=== PATIENT | male | born 1960 | race Caucasian/White ===

== ENCOUNTER 2022-04-04 10:20 | Outpatient (CLI) | payer MEDICARE, BC, SELFPAY ==
--- NOTE | 2022-04-04 10:15 | MR_ITS ---
[address] [address] Phone:?[phone] Fax:?[phone] Referring Physician Information: Wesly West M.D. [id number] [facility] [address] Phone:?[phone] Fax:?[phone] Patient:Lauren Mcintosh D.O.B:?1960 Sex:?Male Phone:?[phone] [facility] MRN:?[id number] Exam Date:?04/04/2022 ? EXAM: MRI of the LEFT KNEE, without contrast CLINICAL HISTORY: Left knee pain. Evaluate for medial meniscal tear. COMPARISONS: None available. TECHNICAL: MR sequences of the left knee: sagittals: PD, PDFS coronals: PD, STIR axials: PD, T2 FS CONTRAST: None SEDATION: None FINDINGS: Bones: No fracture, bone marrow contusion, or other suspicious bone marrow signal abnormality. Patellofemoral joint: Cartilage: Approximately 2.0 x 2.0 cm area of near full-thickness chondromalacia centered over the central portion of the trochlea best seen on sagittal series 6 image 17 and axial series 4 image 15. A couple of near full-thickness chondral fissures over the median patellar ridge best seen on axial series 4 image 10. Retinacula: The medial and lateral retinacula are intact. Fat pads: The infrapatellar, quadriceps, and prefemoral fat pads are unremarkable. Knee joint: Effusion: Physiologic amount of joint fluid. Popliteal cyst: None. Intra-articular bodies: None. Medial compartment: Medial meniscus: Approximately 3.0 cm in length free edge and inferiorly surfacing horizontal flap tear of the body through posterior horn of the medial meniscus with a flap of torn meniscal tissue at the free edge of the posterior horn flipped superiorly best seen on sagittal series 6 images 6 through 13 and coronal series 7 and 8 images 20 through 22. 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 Lateral compartment: Lateral meniscus: Approximately 0.5 cm in length free edge and inferiorly surfacing horizontal tear of the body through body/posterior horn junction of the lateral meniscus best seen on coronal series 7 and 8 images 19 through 21. Cartilage: Intact. Ligaments: Anterior cruciate ligament: Intact. Posterior cruciate ligament: Intact. Medial collateral ligament: There is Kelly-Stieda. No acute medial collateral ligament injury is seen. Posterior oblique ligament: Intact. Fibular collateral ligament: Intact. Posterolateral corner: The distal biceps femoris tendon, iliotibial band, popliteus tendon, popliteus muscle, popliteofibular ligament, and arcuate ligament are intact. Posteromedial corner: The semimembranosus and pes anserine tendons are intact. Extensor mechanism: Patellar tendon: Intact. Quadriceps tendon: Intact. There is marked atrophy of the imaged proximal portion of the medial head of the gastrocnemius muscle in the setting of more diffuse [id number] muscular atrophy. IMPRESSION: 1. Approximately 3.0 cm in length free edge and inferiorly surfacing horizontal flap tear of the body through posterior horn of the medial meniscus with a flap of torn meniscal tissue at the free edge of the posterior horn flipped superiorly. 2. Approximately 0.5 cm in length free edge and inferiorly surfacing horizontal tear of the body through body/posterior horn junction of the lateral meniscus. 3. Kelly-Stieda, indicative of old medial collateral ligament sprain injury. No acute medial collateral ligament injury. 4. Approximately 2.0 x 2.0 cm area of near full-thickness chondromalacia centered over the central portion the trochlea and a couple of near full- thickness chondral fissures over the median patellar ridge. 5. 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 RCB Electronically signed on 04/04/2022 12:09:00 PM by David Ji M.D.
--- OUTSIDE RECORDS SUMMARY | 2022-04-04 10:22 | XMS_ITS | Clinical Summary ---
:1960 Author Organization [employer] [facility] [place] [address] Care Team Providers Name Role Phone Graham Morejon DO Primary Care Provider Allergies Active Allergy Reactions Severity Noted Date Comments Bupropion Anxiety, Agitation, 01/20/2010 Diaphoresis Citalopram *Unknown 01/27/2012 Urine retention / anger issues / crabby Omeprazole GI Upset 11/21/2011 Does not tolera te Generic form-tolerates prilosec Gastric reflux worsens with this. Pregabalin Syncope 12/11/2009 Lyrica Medications Medication Sig Dispensed Refills Start End Status Date Date ASPIRIN 325 MG TAB One tablet 0 12/23/19 Active daily 06 calcium Take 1 tablet 0 05/06/20 Active carbonate-vitamin by mouth 2 14 D3, 600 mg-400 unit, times daily (CALCIUM 600 + D) with meals. 600 mg(1,500mg) -400 unit tablet propranolol Take 1 tablet 1 06/19/20 Acti ve (INDERAL) 20 mg by mouth one 15 tabletIndications: time if needed Tremor for Other (Specify). Per Dr. Garrett Dominguez 3CC LUER-KRISTAL SYR Use as 50 Each 3 12/06/19 Active [id number]/2 3 mL 22 x directed. 18 1 1/2 syrgIndications: Low testosterone lamoTRIgine Take 150 mg by 0 03/23/20 Act kelby (LAMICTAL) 150 mg mouth 2 times 20 tablet daily. atorvastatin Take 1 Tablet 90 tablet. 3 02/06/20 Ac tive (LIPITOR) 80 mg (80 mg) by 21 tabletIndications: mouth once Hyperlipidemia with daily. Wait target LDL less than until they call 100 for this. pantoprazole TAKE ONE TABLET 90 Tablet 3 08/04/19 A ctive (PROTONIX) 20 mg BY MOUTH ONE 22 tabletIndications: TIME DAILY Gastroesophageal reflux disease, unspecified whether esophagitis present cyclobenzaprine Take 1 Tablet 21 Tablet 0 03/08/20 Active (FLEXERIL) 10 mg (10 mg) by 22 tabletIndications: mouth 3 times Abdominal pain, RLQ daily if needed (right lower for Muscle quadrant) Spasm. FreeStyle Jody 14 To be used to 1 Each 0 03/10/20 Active Day read blood 22 SensorIndications: sugars per Uncontrolled type 2 teradata developer's diabetes mellitus directions. with hyperglycemia (HC) glipiZIDE Take 1 tablet 90 Tablet 2 03/10/20 Active extended-release before 22 (GLUCOTROL XL) 5 mg breakfast and 2 Extended-Release tablets before tabletIndications: dinner. Type 2 diabetes mellitus without complication, without long-term current use of insulin (HC) FreeStyle Jody 14 To be used to 1 Each 0 03/11/20 Active Day read blood 22 ReaderIndications: sugars per Type 2 diabetes teradata developer's mellitus without directions. complication, without long-term current use of insulin (HC) tamsulosin (FLOMAX) Take 2 Capsules 180 Capsule 3 03/11/20 Active 0.4 mg (0.8 mg) by 22 capsuleIndications: mouth once Frequency of daily after a urination meal. meloxicam 15 mg meloxicam 15 mg tablet 0 Active tablet TAKE ONE TABLET BY MOUTH ONE TIME DAILY furosemide (LASIX) furosemide 40 mg tablet 0 Active 40 mg tablet TAKE 0.5 TABLETS BY MOUTH TWICE DAILY. metFORMIN 0 03/30/20 Active (GLUCOPHAGE) 500 mg 22 tablet continuous glucose FreeStyle Jody 14 Day Sensor kit 0 Active monitor SENSOR KIT To be used to read blood clark gars per teradata developer's directions. (FreeStyle Jody 14 Day Sensor) lancets (Accu-Chek Accu-Chek Softclix Lancets 0 Active Softclix Lancets) USE TO TEST BLOOD SUGAR TWICE DAILY tamsulosin (FLOMAX) Take 2 Capsules 180 capsule. 3 02/06/20 0 Discontinued 0.4 mg (0.8 mg) by 022 (Reorder capsuleIndications: mouth once (E-cancel not Frequency of daily after a sen t)) urination meal. cyclobenzaprine Take 1 Tablet 21 Tablet 0 12/23/19 Discontinued (FLEXERIL) 10 mg (10 mg) by 022 (R eorder tabletIndications: mouth 3 times (E-cancel not Abdominal pain, RLQ daily if needed sent)) (right lower for Muscle quadrant) Spasm for up to 7 days. furosemide (LASIX) Take 20 mg by 0 02/25/20 Discontinued 20 mg tablet mouth two times 022 ( *Medication daily. adjustment ) metFORMIN Take 1 Tablet 60 Tablet 2 02/29/20 Discon tinued (GLUCOPHAGE) 1,000 (1,000 mg) by 022 (*Medication mg mouth two times adju stment) tabletIndications: daily with Type 2 diabetes meals. mellitus without complication, without long-term current use of insulin (HC), Shakiness glipiZIDE Take 1 Tablet 30 Tablet 2 02/29/20 Discon tinued extended-release (5 mg) by mouth 022 (*Medication (GLUCOTROL XL) 5 mg once daily adjustment) Extended-Release before a meal. tabletIndications: Type 2 diabetes mellitus without complication, without long-term current use of insulin (HC) polyethylene glycoL Mix 1 scoop (17 116 g 0 02/29/2011/01 (MIRALAX) 17 g) in liquid 22 022 gram/dose then take by powderIndications: mouth once Constipation, acute daily if needed for Constipation for up to 7 days. glipiZIDE Take 2 Tablets 30 Tablet 2 03/10/20 Disco ntinued extended-release (10 mg) by 022 (* Medication (GLUCOTROL XL) 5 mg mouth once adjustment) Extended-Release daily before a tabletIndications: meal. Type 2 diabetes mellitus without complication, without long-term current use of insulin (HC) Hospital, Clinic, or Other Ordered Dose Route Frequency Start Date End Date Status Facility Administered Medication triamcinolone acetonide 40 mg IArtic ONE TIME 03/31/202203/31 Ended (KENALOG) injection 40 mgIndications: Chronic left shoulder pain Active Problems Problem Noted Date Controlled substance agreement signed 02/10/2021 Controlled substance agreement signed 02/27/2020 Essential hypertension 07/26/2018 Colon polyps 07/28/2017 Overview: His last Colonoscopy was 12/31/2012. Due f or next 01/01/2018 Erectile dysfunction 05/16/2016 Type 2 diabetes mellitus without complication, without long-term current 03/15/2016 use of insulin DDD (degenerative disc disease), lumbar 03/14/2016 Myofacial muscle pain 11/05/2015 Gastroesophageal reflux disease 04/14/2015 Cervicothoracic interspinous bursitis 04/11/2014 Sacroiliac dysfunction 10/24/2013 Headache(784.0) 07/28/2013 Encounter for long-term (current) use of other medicat ions 12/21/2011 Overview: Benzodiazepine. Cont sub agreement . Anxiety state, unspecified 12/21/2011 Other and unspecified alcohol dependence, in remission 12/21/2011 Overview: 1980s Facet arthropathy, cervical 10/28/2011 Lumbar facet arthropathy 01/26/2011 Hyperlipidemia LDL goal < 100 12/01/2010 Lumbar disc herniation 10/27/2010 HTN (hypertension) 08/16/2010 Anemia 05/12/2010 Short-term memory loss 12/27/2009 Gynecomastia, male 08/18/2009 Overview: 08/2009 Negative breast ultrasound and ma mogram Low testosterone 01/18/2009 Impotence of organic origin 01/12/2009 Benign neoplasm of colon 09/01/2008 Overview: colonoscopy 08/2008 polyp, Colonoscopy in 5 years. Dysthymic disorder 01/16/2008 Peripheral vascular disease, unspecified 02/12/2007 Overview: Stents placed in 1999. Irritable bowel syndrome 02/12/2007 Edema 02/12/2007 Unspecified sleep apnea 02/12/2007 Cervical spondylosis with myelopathy 05/08/2006 Other symptoms referable to back 04/17/2006 Myalgia and myositis, unspecified 04/17/2006 Cervicalgia 04/17/2006 Pain in thoracic spine 12/22/2005 Lumbago 10/05/2005 Resolved Problems Problem Noted Date Resolved Date Controlled substance agreement signed 10/18/2018 Overview: Signed 10/18/2018 Serenity Farrell .................... 2018 7:02 AM Controlled substance agreement signed 02/08/2017 Overview: [facility] Dr. Gonzales Controlled substance agreement signed 09/18/2013 Overview: [facility] (Janet- 2013) Pain medication agreement 09/09/2011 03/14/2017 Esophageal reflux 02/12/2007 04/14/2015 Overview: EGD 05/2010 normal Encounters Date Type Specialty Care Team Description 03/31/2022 Office Visit Graham Morejon DO Injection ( Medication); Shoulder Pain/p roblem (LEFT shoulder ) 03/31/2022 Travel 03/11/2022 Refill Graham Morejon DO Refill Requ est (GLIPIZIDE ER ORAL) 03/10/2022 Office Visit Graham Morejon DO Musculoskel etal Problem (Groin pain - h as been taking the musc le relaxer x3 daily - has improved since ) 03/10/2022 Travel 03/09/2022 Refill Alexi Erica Refill Requ est (Tamsulosin) JAKE Garcia 03/08/2022 Telephone Graham Morejon DO Appointment Request (needs an appt soon) 02/28/2022 Office Visit Graham Morejon DO Pain (Legs and feet, ongoing); Chiquis rns (Sneezing a lot , COVID-19 positive 1 1/2 month ago); Diabetes (High glucose) 02/28/2022 Telephone Graham Morejon DO Results 02/28/2022 Travel 02/20/2022 Refill Erica Truong Refill Requ est (Metformin, JAKE Garcia Furosemide) 01/27/2022 Emergency Yair Domingo Fast heart beat (Primary Dx); MD Alfred Weakness; Anemia, unspeci fied type; Thrombocytopeni a (HC) 01/27/2022 Office Visit Fast Heartbeat (Symptom for about a month n ow) 01/27/2022 Travel 01/10/2022 Medical Messaging Sanjeev Barrios in [place] from Last 3 Months Immunizations Name Administration Dates Next Due AMB Influenza, IIV3 (Age >=3 04/27/2011 years)(Flu Clinic Only) Hepatitis B (Adult) 07/23/2013, 01/16/2013, 12/14/2012 Influenza, IIV3 (Age 6-35 mos) 04/27/2011 Influenza, IIV3 (Age >=3 years) 03/11/2013, 03/19/2012, 05/03, 04/08/2009, 06/11/2008, 04/20/2007, 04/10/2006, 05/01/2004 Influenza, IIV4 04/17/2019, 04/04/2016, 04/08/2014 Td, Preservative Free (age >= 7 01/24/2005 Years) Tdap 04/17/2019, 02/12/2007 Zoster (Shingrix-RZV, recombinant) 04/17/2019 Family History Medical History Relation Name Comments Heart Disease Brother 1 [place] at 49 Alcohol/Drug Brother 2 Heart Disease Father VT at 37 Cancer-breast Mother Relation Name Status Comments Brother 1 Brother 2 Father Mother Social History Tobacco Use Types Packs/Day Years Used Date Former Smoker Cigarettes 0.5 28 Quit: 08/08/19 19 Smokeless Tobacco: Former User Chew Tobacco Cessation: Counseling Given: Yes Comments: quit Smoking in 1997-smoking 8 -9 cigs a day-a tin q 6 days Alcohol Use Standard Drinks/Week Comments No 0 (1 standard drink = 0.6 oz pure CD mikayla atment for EtOH dep; 1983, alcohol) 1987 Alcohol Habits Answer Date Recorded How often do you have a drink Not asked containing alcohol? How many drinks containing alcohol Not asked do you have on a typical day when you are drinking? How often do you have six or more Not asked drinks on one occasion? Comment: CD treatment for EtOH dep; 1983, 012 1987 Sex Assigned at Date Recorded Not on file COVID-19 Exposure Response Date Recorded In the last 10 days, have you been in contact with No / Unsu re 03/31/2022 12:44 PM CDT someone who was confirmed or suspected to have Coronavirus/COVID-19? Obstetrics History Last Filed Vital Signs Vital Sign Reading Time Taken Comments Blood Pressure 114/71 03/31/2022 12:49 PM CDT Pulse 90 03/10/2022 2:05 PM CDT Temperature 36.7 ??C (98.1 ??F) 03/31/2022 12:49 PM CDT Respiratory Rate 20 01/27/2022 5:33 PM CDT Oxygen Saturation 100% 03/31/2022 12:49 PM CDT Inhaled Oxygen Concentration - - Weight 76.9 kg (169 lb 9.6 oz) 03/31/2022 12:49 PM CDT Height 172.7 cm (5' 8) 02/28/2022 2:47 PM CDT Body Mass Index 25.79 02/28/2022 2:47 PM CDT Plan of Treatment Upcoming Encounters Date Type Specialty Care Team Description 05/10/2022 Office Visit Graham Morejon DO [address] [place], [place] [address] (Wo rk) Health Maintenance Due Date Last Done Comments COVID-19 vaccine series (#1) 1960 Pneumococcal series for age 19-64 1964 (1 - PCV) Fecal testing non-DNA 12/21/2012 12/22/2011 (FIT,FOBT,iFOBT) for age 45-75 Zoster (shingles) series for age 1206/12/2019 04/17/2019 50+ (2 of 2) Influenza for age 50-64 03/03/2022 04/17/2019, 04/04/2016, 04/08/2014, Additional history exists BMI (ht and wt on same day) for 02/28/2023 02/28/2022, 11/0 10/2020, age 18+ 04/15/2020, Additional history exists Depression screening for age 12+ 03/08/2023 03/08/2022, , 02/28/2022, Additional history exists Lipids for age 45-75 02/03/2026 02/03/2021, 01/21/2020, 04/11/2019, Additional history exists Tetanus booster 04/17/2029 04/17/2019, 02/12/2007, 01/24/2005 Hepatitis C screening for age Completed 09/19/2012 18-79 Tdap Completed 04/17/2019, 02/12/2007 Medical Devices Implanted Type Area Cellophane Worker Device Shelf Model / Identifier Expiration Serial / Date Lot Screw 4.0x15mm - [id number] Spine Spine SOFAMOR DANEK [id number]# / Implanted: Qty: 4 on 09/03/2008 at [facility] Implan ts / Plate Cerv Ant 30mm Atlantisvision 976-130 - [id number] Spine SOFAMOR DANEK 976-130# / Implanted: Qty: 1 on 09/03/2008 at [facility] / Procedures Procedure Name Priority Date/Time Associated Diagnosis Comme nts CBC WITH AUTO Routine 03/10/2022 2:53 Uncontrolled type 2 Resu lts for this DIFFERENTIAL PM CDT diabetes mellitus procedure are in with hyperglycemia the resul ts (HC) section. [facility] HOLD 103 Routine 03/10/2022 2:53 Uncontrolled type 2 R esults for this PM CDT diabetes mellitus procedure are in with hyperglycemia the resul ts (HC) section. CBC WITH AUTO Routine 03/10/2022 2:53 Uncontrolled type 2 Resu lts for this DIFFERENTIAL PM CDT diabetes mellitus procedure are in with hyperglycemia the resul ts (HC) section. BASIC METABOLIC PANEL Routine 03/10/2022 2:53 Uncontrolled typ e 2 Results for this PM CDT diabetes mellitus procedure are in with hyperglycemia the resul ts (HC) section. URINE ALBUMIN TO Routine 02/28/2022 3:44 Neuropathy involving Results for this CREATININE RATIO, PM CDT both lower procedure are in RANDOM extremities the results Type 2 diabetes section. mellitus without complication, without long-term current use of insulin (HC) Nayely BASIC METABOLIC PANEL STAT 02/28/2022 3:41 Neuropathy invol ving Results for this PM CDT both lower procedure are i n extremities the results Type 2 diabetes section. mellitus without complication, without long-term current use of insulin (HC) Nayely HEMOGLOBIN A1C Routine 02/28/2022 3:41 Neuropathy involving Re sults for this PM CDT both lower procedure are i n extremities the results Type 2 diabetes section. mellitus without complication, without long-term current use of insulin (HC) Shakiness HEPATIC FUNCTION STAT 01/27/2022 6:09 Results for this PANEL PM CDT procedure are i n the results section. LAMOTRIGINE STAT 01/27/2022 6:09 Results for this (LAMICTAL) PM CDT procedure are i n the results section. CK TOTAL STAT 01/27/2022 6:09 Results for this PM CDT procedure are i n the results section. TSH STAT 01/27/2022 6:09 Results for this PM CDT procedure are i n the results section. TROPONIN I STAT 01/27/2022 6:09 Results for this PM CDT procedure are i n the results section. MAGNESIUM STAT 01/27/2022 6:09 Results for this PM CDT procedure are i n the results section. BASIC METABOLIC PANEL STAT 01/27/2022 6:09 Res ults for this PM CDT procedure are i n the results section. CBC W PLT NO DIFF STAT 01/27/2022 6:09 Results for this PM CDT procedure are i n the results section. ED FAST ULTRASOUND Routine 01/27/2022 6:00 PM CDT EKG 12 LEAD STAT 01/27/2022 5:36 Results for this PM CDT procedure are i n the results section. W[place] ECG ROUTINE ECG Routine 01/27/2022 12:00 Heart rate fast Re sults for this W/LEAST 12 LDS W/I&R AM CDT procedu re are in the results section. from Last 3 Months Results FLORENTINO 65 AUTOANTIBODY (03/10/2022 2:53 PM CDT) athologist Signature FLORENTINO 65 <5.0 0.0 - 5.0 03/14/2022 [facility] U/mL 4:07 PM CDT [facility] ESOTERIC TEST[facility] (CET) Specimen Anatomical Collection Method / Collection Time Recei milind Time (Source) Location / Volume Laterality Blood BLOOD SPECIMEN / Venipuncture / 03/10/2022 2:53 2021 2:55 Unknown Unknown PM CDT PM CDT Narrative [facility] ESOTERIC TEST[facility] (CET) - 03/14/2022 4:07 PM CDT Performed at: ??01 - [facility] [address] [place], [place] ??[address] Child Care Leader: Amber Kerr MD, Phone: ??[phone] Beckyaakash Espinodyan REYES SEND OUTS Performing Organization Address City/State/ZIP Code Phon e Number [facility] [address] [place], [place] [address] ESOTERIC TESTING (CET) (ABNORMAL) CBC WITH AUTO DIFFERENTIAL (03/10/2022 2:53 PM CDT) [facility] Method Time Signature WHITE BLOOD 6.5 4.5 - 03/10/2022 [facility] COUNT 11.0 3:00 PM CDT [facility] mm RED BLOOD COUNT 4.16 (L) 4.30 - 03/10/2022 [facility] 5.90 3:00 PM CDT [facility]INIC HEMOGLOBIN 12.7 (L) 13.5 - 03/10/2022 [facility] 17.5 g/dL 3:00 PM T [facility] HEMATOCRIT 38.0 37.0 - 03/10/2022 [facility] 53.0 % 3:00 PM CDT [facility] MCV 91 80 - 100 03/10/2022 [facility] fL 3:00 PM CDT [facility] MCH 30.5 26.0 - 03/10/2022 [facility] 34.0 pg 3:00 PM T [facility] MCHC 33.4 32.0 - 03/10/2022 [facility] 36.0 g/dL 3:00 PM CDT [facility] RDW 14.8 11.5 - 03/10/2022 [facility] 15.5 % 3:00 PM CDT [facility] PLATELET COUNT 154 140 - 440 03/10/2022 [facility] th/cu 3:00 PM CDT [facility] MPV 9.7 6.5 - 03/10/2022 [facility] 11.0 fL 3:00 PM CDT [facility] % NEUT 55.3 % 03/10/2022 [facility] 3:00 PM CDT [facility] % LYMPH 31.2 % 03/10/2022 [facility] 3:00 PM CDT [facility] % MONO 9.2 % 03/10/2022 [facility] 3:00 PM CDT [facility] % EOS 3.8 % 03/10/2022 [facility] 3:00 PM CDT [facility] % BASO 0.5 % 03/10/2022 [facility] 3:00 PM CDT [facility] ABSOLUTE 3.6 1.7 - 7.0 03/10/2022 [facility] NEUTROPHILS thou/cu 3:00 PM CDT [facility] ABSOLUTE 2.0 0.9 - 2.9 03/10/2022 [facility] LYMPHOCYTES thou/cu 3:00 PM CDT [facility] ABSOLUTE 0.6 <0.9 03/10/2022 [facility] MONOCYTES thou/cu 3:00 PM CDT [facility] ABSOLUTE 0.3 <0.5 03/10/2022 [facility] EOSINOPHILS thou/cu 3:00 PM CDT [facility] ABSOLUTE 0.0 <0.3 03/10/2022 [facility] BASOPHILS thou/cu 3:00 PM CDT [facility] Specimen Anatomical Collection Method / Collection Time Recei milind Time (Source) Location / Volume Laterality Blood BLOOD SPECIMEN / Venipuncture / 03/10/2022 2:53 2021 2:55 Unknown Unknown PM CDT PM CDT Beckyi Darleen REYES HEMATOLOGY Performing Organization Address City/State/ZIP Code Phon e Number [facility] [address] [place] [address] (ABNORMAL) BASIC METABOLIC PANEL (03/10/2022 2:53 PM CDT)Only the most recent of 3 resultswithin the time period is included. Analysis Performed At Patho logist Time Signature SODIUM 140 135 - 145 03/11/2022 [facility] mmol/L 6:25 AM CDT [facility] POTASSIUM 4.0 3.5 - 5.0 03/11/2022 [facility] mmol/L 6:25 AM CDT [facility] CHLORIDE 101 98 - 110 03/11/2022 [facility] mmol/L 6:25 AM CDT [facility] CO2,TOTAL 29 21 - 31 03/11/2022 [facility] batterii mmol/L 6:25 AM CDT [facility] ANION GAP 10 5 - 18 03/11/2022 [facility] batterii 6:25 AM CDT [facility] GLUCOSE 154 (H) 65 - 100 03/11/2022 [facility] mg/dL 6:25 AM CDT [facility] CALCIUM 9.9 8.5 - 10.5 03/11/2022 [facility] mg/dL 6:25 AM CDT [facility] BUN 14 8 - 25 03/11/2022 [facility]ii mg/dL 6:25 AM CDT [facility] CREATININE 1.00 0.72 - 03/11/2022 [facility] batterii 1.25 mg/dL 6:25 AM CDT [facility] BUN/CREAT RATIO 14 10 - 20 03/11/2022 [facility] batterii 6:25 AM CDT [facility] eGFR 85 (L) >90 03/11/2022 [facility]ii mL/min/1.7 6:25 AM CDT [facility] 3m2 TRAL LABOR[facility]ORY Comment: As of 2021, eGFR is calcu lated by the CKD-EPI creatinine equation without race adjustment. eGFR can be inf luenced by muscle mass, exercise, and diet. The reported eGFR is an estimation only and is only applicable if the renal function is stable. Specimen Anatomical Collection Method / Collection Time Recei milind Time (Source) Location / Volume Laterality Blood BLOOD SPECIMEN / Venipuncture / 03/10/2022 2:53 2021 2:55 Unknown Unknown PM CDT PM CDT Graham Morejon DO CHEMISTRY Performing Organization Address City/State/ZIP Code Phon e Number [facility] [address] [place] [address] [facility] LABORATORY URINE ALBUMIN TO CREATININE RATIO, RANDOM (02/28/2022 3:44 PM CDT) athologist Signature ALB RAND URINE <5.0 mg/L 03/01/2022 [facility] batterii 12:22 AM CDT [facility] CREATININE,URIN 0.32 g/L 03/01/2022 [facility] batterii E 12:22 AM CDT [facility] ALBUMIN TO 03/01/2022 [facility] CREATININE 12:22 AM CDT LAB[facility]-CENT RATIO,RAND UR RAL LABORATORY Comment: Urine Albumin below measurement range, unable to calculate Specimen Anatomical Collection Method Collection Time Receive d Time (Source) Location / / Volume Laterality Urine URINE SPECIMEN / Non-Blood / 02/28/2022 3:44 PM 02/28 3:44 Unknown Unknown CDT PM CDT Narrative [facility] LAB[facility] ORY - 03/01/2022 12:22 AM CDT If Albumin to Creatinine Ratio is elevated, consider the following: ? Elevations seen with incipient nephr opathy associated ?? with diabetes mellitus or hypertensi on. Stress, exercise, ?? hematuria, and urinary tract infecti on may also produce ?? elevated results. If clinically agustina cated, confirm with ?? 24 Hour Albumin to Creatinine Ratio. Graham Morejon DO URINE Performing Organization Address City/State/ZIP Code Phon e Number [facility] [address] [place] [address] [facility] [address] LABORATORY (ABNORMAL) HEMOGLOBIN A1C MONITORING (POCT) (02/28/2022 3:41 PM CDT) [facility] gist Method Time Signature HEMOGLOBIN A1C 10.1 (H) <=6.4 % 02/28/2022 [facility] MONITORING 3:52 PM CDT [place] (POCT) [facility] Specimen Anatomical Collection Method / Collection Time Recei milind Time (Source) Location / Volume Laterality Blood BLOOD SPECIMEN / Venipuncture / 02/28/2022 3:41 2021 3:41 Unknown Unknown PM CDT PM CDT Narrative [facility] - 2021 3:52 PM CDT ? (<=6.9%) ? Indicates good control ? (7.0% to 7.9%) ? Indicates fa ir control ? (>=8.0%) ? Indicates poor control ?? NOTE: ??These thresholds are guideli luda and ?individual targets may va ry. Falsely low levels may be seen with: Recent Transfusion, Recent Significant B lood Loss, Hemolytic Diseases, or Falsely elevated levels may be seen with : Untreated Anemias, Splenectomy ? Graham Morejon DO CHEMISTRY Performing Organization Address City/[facility]/ZIP Code Phon e Number [facility] [address] [place] [address] (ABNORMAL) LAMOTRIGINE (LAMICTAL) (01/27/2022 6:09 PM CDT) athologist Signature LAMOTRIGINE <0.9 (L) 3.0 - 15.0 01/28/2022 [facility] ug/mL 4:17 PM CDT [facility] Specimen Anatomical Collection Method / Collection Time Recei milind Time (Source) Location / Volume Laterality Blood BLOOD SPECIMEN / Venipuncture / 01/27/2022 6:09 2021 6:13 Unknown Unknown PM CDT PM CDT Narrative [facility]Y - 01/28/2022 4:17 PM CDT The target steady state range for seizure control is 3-15 ug/mL. Concentrations that exceed 15 ug/mL may contribute to adverse effects.Patien t response varies widely, particularly with co-medications and/or compromised renal function. Yair Domingo MD SEND OUTS Performing Organization Address City/[facility]/ZIP Code Phon e Number [facility] [address] [place] [address] LABORATORY-CENTRAL 2000 LABORATORY TROPONIN I (01/27/2022 6:09 PM CDT) athologist Signature TROPONIN I <0.010 <0.034 01/27/2022 [place] ng/mL 6:42 PM CDT [facility] Specimen Anatomical Collection Method / Collection Time Recei milind Time (Source) Location / Volume Laterality Blood BLOOD SPECIMEN / Venipuncture / 01/27/2022 6:09 2021 6:13 Unknown Unknown PM CDT PM CDT Yair Domingo MD CHEMISTRY Performing Organization Address City/[facility]/ZIP Code Phon e Number [facility] [address] [place] [address] TSH (01/27/2022 6:09 PM CDT) P athologist Signature TSH 0.35 0.35 - 4.94 01/27/2022 [place] uIU/mL 6:55 PM [facility] Specimen Anatomical Collection Method / Collection Time Recei milind Time (Source) Location / Volume Laterality Blood BLOOD SPECIMEN / Venipuncture / 01/27/2022 6:09 2021 6:13 Unknown Unknown PM CDT PM CDT Narrative [facility] - 6:55 PM CDT In Adults, TSH values between 5.00 and 10.00 uIU/ml do not necessarily indicate the presence of Hyp othyroidism. Correlation with clinical findings such as presence of goiter and/or Thyroperoxidase (TPO) Antibody ma y be helpful. For more information please refer to FRANK 20 ; [phone]: [phone]. Yair Domingo MD CHEMISTRY Performing Organization Address City/[facility]/ZIP Code Phon e Number [facility] [address] [place] [address] (ABNORMAL) CBC W PLT NO DIFF (01/27/2022 6:09 PM CDT) Patholo gist Method Time Signature WHITE BLOOD 5.3 4.5 - 11.0 01/27/2022 [facility] thou/cu mm 6:16 PM [facility] RED BLOOD COUNT 3.91 (L) 4.30 - 01/27/2022 [facility] 5.90 6:16 PM [facility] mil/cu mm LABORATORY HEMOGLOBIN 11.8 (L) 13.5 - 01/27/2022 [place] 17.5 g/dL 6:16 PM [facility] HEMATOCRIT 36.6 (L) 37.0 - 01/27/2022 [facility] 53.0 % 6:16 PM [facility] MCV 94 80 - 100 01/27/2022 [facility] fL 6:16 PM [facility] MCH 30.2 26.0 - 01/27/2022 [place] 34.0 pg 6:16 PM [facility] MCHC 32.2 32.0 - 01/27/2022 [place] 36.0 g/dL 6:16 PM [facility] LAB[facility] RDW 14.9 11.5 - 01/27/2022 [place] 15.5 % 6:16 PM [facility] LABORATORY PLATELET COUNT 131 (L) 140 - 440 01/27/2022 [place] thou/cu mm 6:16 PM [facility] LABORATORY MPV 9.7 6.5 - 11.0 01/27/2022 [place] fL 6:16 PM [facility] Specimen Anatomical Collection Method / Collection Time Recei milind Time (Source) Location / Volume Laterality Blood BLOOD SPECIMEN / Venipuncture / 01/27/2022 6:09 2021 6:13 Unknown Unknown PM CDT PM CDT Yair Domingo MD HEMATOLOGY Performing Organization Address City/[facility]/ZIP Code Phon e Number [facility] [address] [place] [address] MAGNESIUM (01/27/2022 6:09 PM CDT) athologist Signature MAGNESIUM 1.8 1.6 - 2.6 01/27/2022 [place] mg/dL 6:34 PM [facility] Specimen Anatomical Collection Method / Collection Time Recei milind Time (Source) Location / Volume Laterality Blood BLOOD SPECIMEN / Venipuncture / 01/27/2022 6:09 2021 6:13 Unknown Unknown PM CDT PM CDT Yair Domingo MD CHEMISTRY Performing Organization Address City/[facility]/ZIP Code Phon e Number [facility] [address] [place] [address] (ABNORMAL) CK TOTAL (01/27/2022 6:09 PM CDT) athologist Signature CK,TOTAL 209 (H) 30 - 200 01/27/2022 [place] IU/L 6:35 PM [facility] Specimen Anatomical Collection Method / Collection Time Recei milind Time (Source) Location / Volume Laterality Blood BLOOD SPECIMEN / Venipuncture / 01/27/2022 6:09 2021 6:13 Unknown Unknown PM CDT PM CDT Yair Domingo MD CHEMISTRY Performing Organization Address City/[facility]/ZIP [facility] Phon e Number [facility] [address] [place] [address] (ABNORMAL) HEPATIC FUNCTION PANEL (01/27/2022 6:09 PM CDT) Analysis Performed At Patho logist Time Signature ALBUMIN 3.8 3.2 - 4.6 01/27/2022 [place] g/dL 6:35 PM [facility] LABORATORY PROTEIN,TOTAL 6.4 6.0 - 8.0 01/27/2022 [place] g/dL 6:35 PM [facility] LABORATORY GLOBULIN 2.6 2.0 - 3.7 01/27/2022 [place] g/dL 6:35 PM [facility] LABORATORY A/G RATIO 1.5 1.0 - 2.0 01/27/2022 [place] 6:35 PM [facility] LABORATORY BILIRUBIN,TOTAL 0.6 0.2 - 1.2 01/27/2022 [place] mg/dL 6:35 PM [facility] LABORATORY BILIRUBIN,DIRECT 0.2 0.1 - 0.5 01/27/2022 [place] mg/dL 6:35 PM [facility] LABORATORY BILIRUBIN,INDIRE 0.4 0.2 - 0.8 01/27/[address] [place] [address] mg/dL 6:35 PM [facility] LABORATORY ALK PHOSPHATASE 72 50 - 136 01/27/2022 [place] IU/L 6:35 PM [facility] ALT (SGPT) 49 (H) 8 - 45 01/27/2022 [place] IU/L 6:35 PM [facility] LAB[facility]ORY AST (SGOT) 26 2 - 40 01/27/2022 [place] IU/L 6:35 PM [facility] Specimen Anatomical Collection Method / Collection Time Recei milind Time (Source) Location / Volume Laterality Blood BLOOD SPECIMEN / Venipuncture / 01/27/2022 6:09 2021 6:13 Unknown Unknown PM CDT PM CDT Yair Domingo MD CHEMISTRY Performing Organization Address City/[facility]/ZIP Code Phon e Number [facility] [address] [place] [address] EKG 12 LEAD (01/27/2022 5:36 PM CDT) [facility] Method Time Signature Interpretation Normal sinus rhythm BEYON D NOW Normal ECG No previous ECGs available Ventricular Rate 98 BPM BEYOND NOW Atrial Rate 98 BPM [facility]YOND NOW P-R Interval 206 ms BEYOND NOW QRS Duration 84 ms BEYOND NOW QT 346 ms [place]YOND NOW QTc 441 ms BEYOND NOW P [place] 53 degrees BEYOND NOW R [place] 30 degrees BEYOND NOW T [place] 54 degrees BEYOND NOW Specimen Anatomical Collection Method Collection Time Receive d Time (Source) Location / / Volume Laterality 01/27/2022 5:36 PM 2 6:12 CDT PM CDT Yair Domingo MD EKG ORD Performing Organization Address City/State/ZIP Code Phon e Number [place]OND NOW [place], [place] ECG ROUTINE ECG W/LEAST 12 LDS W/I&R (01/27/2022 12:00 AM CDT) Narrative This result has an attachment that is no t available. Vicky Granda NP PB - CARDIOVASCULAR SYSTEM S ERVICES from Last 3 Months Insurance Payer Benefit Plan / Subscriber ID Effective Phone Address T ype Group Dates WC WORKERS WC [employer] [id number] 2020-Pres [phone] [address] [employer] [address] [place] [address] MEDICARE PART MEDICARE PART B [id number] 2019-Prese A TTN: CLAIMS B - HB USE HB ONLY nt [address] [place] [address] MEDICARE - PB MEDICARE PB [id number] 2019-Prese ATTN: CLAIMS USE ONLY ONLY nt [address] [place] [address] BLUE CROSS BLUE CROSS OF [id number] 2019-Prese [address] [place] [id number] [place] [address] Casey Mcintosh Workers Comp Self [phone] (Home) [place] [address] [employer] V[employer] Other 07/03/[address] [facility] (Home) [address] [place] [address] [facility] (Work) [place] [address] Advance Directives Latest Code Status on File Code Status Date Activated Date Inactivated Comments Full Code 12/27/2009 9:24 PM 12/31/2009 9:56 PM Full Code 09/03/2008 5:15 AM 09/04/2008 6:56 PM Care Teams Collection Correspondent Relationship Specialty Start Date End Date Graham Morejon DO PCP - General Family Practice 02/23/22 [address] [place] [address]
--- OUTSIDE RECORDS SUMMARY | 2022-04-04 10:23 | XMS_ITS | Encounter Summary ---
:1960 Author Care Team Providers Name Role Phone Harvey Renovo Primary Care Provider [phone] Reason for Visit Testicle Pain Assessment and Plan 1. Pain in testicle 1. Right testicle pain - reviewed CT scan (12/20/21) and Testicu lar U/S (12/21/21) images - unremarkable - UA is normal - no structural abnormalities noted - may be nerve irritation - try Meloxicam 15 mg daily for 1 month - try ice pack BID for 2 weeks - Follow-up in 1 months to reassess (if no improvement - consider referral f or spermatic cord denervation or referral to Pain clinic) ? urinalysis, dipstick ? meloxicam 15 mg tablet 2. Lower urinary tract symptoms due to benign prostatic hypertrophy 2. BPH - continue Flomax 0.8 mg daily - check Bladder scan at Follow-up Discussion Note: None recorded.Patient educational handouts: No information available. Plan of Care Reminders Provider Appointments Established 10 04/20/2022 11:00AM Chong Rivera MD Lab Urinalysis, Dipstick 03/16/2022 [facility] Referral None recorded. ? ? Procedures None recorded. ? ? Surgeries None recorded. ? ? Imaging None recorded. ? ? Medications Name Start Date ? ? Accu-Chek Guide Glucose Meter ? USE TO TEST BLOOD SUGAR Accu-Chek Guide test strips ? USE TO TEST BLOOD SUGAR TWICE DAILY Accu-Chek Softclix Lancets ? USE TO TEST BLOOD SUGAR TWICE DAILY atorvastatin 80 mg tablet ? TAKE ONE TABLET BY MOUTH ONE TIME DAILY FreeStyle Jody 14 Day Sensor kit ? To be used to read blood sugars per sugar cane planter's di rections. FreeStyle Jody 2 [place] ? To be used to read blood sugars per sugar cane planter's di rections. furosemide 20 mg tablet ? TAKE ONE TABLET BY MOUTH TWICE DAILY furosemide 40 mg tablet ? TAKE 0.5 TABLETS BY MOUTH TWICE DAILY. glipizide ER 5 mg tablet, extended release 24 hr ? TAKE 1 TABLET BY MOUTH BEFORE BREAKFAST AND 2 TABLETS BEFORE DINNER. lamotrigine 150 mg tablet ? TAKE ONE TABLET BY MOUTH TWICE DAILY meloxicam 15 mg tablet ? TAKE ONE TABLET BY MOUTH ONE TIME DAILY metformin 1,000 mg tablet ? Take 1 Tablet (1,000 mg) by mouth two times daily wit h meals. metformin 500 mg tablet ? TAKE TWO TABLET BY MOUTH TWICE DAILY WITH MEALS pantoprazole 20 mg tablet,delayed release ? TAKE ONE TABLET BY MOUTH ONE TIME DAILY propranolol 20 mg tablet ? TAKE ONE TABLET BY MOUTH TWICE DAILY NEEDED FOR TR EMOR. tamsulosin 0.4 mg capsule ? Take 2 Capsules (0.8 mg) by mouth once daily after a meal. Medications Administered None recorded. Vitals Height Weight BMI 5 ft 8 in 165 lbs 25.1 kg/m2 Results Lab Results Date Name Specimen Result Interpretation Description Value Range Status Address ? 03/16/2022 Urinalysis, ? Color-Status Yellow ? ? [facility]: [address] [place] ? ? ? Clarity-Status Clear ? ? [facility]: [address], [place] ? ? ? Glucose-Status Negative ? ? [facility]: [address], [place] ? ? ? Bilirubin-Status Negative ? ? [facility]: [address], [place] ? ? ? Ketones-Status Negative ? ? [facility]: [address], [place] ? ? ? Nitrates-Status negative ? ? [facility]: [address], [place] ? ? ? Blood-Status Negative ? ? [facility]: [address], [place] ? ? ? Leuko-Status Negative ? ? [facility]: [address], [place] Allergies Code Code System Name Reaction Severity Onset 994856 RxNorm Celexa ? ? 06/20/2012 74651 RxNorm Prevacid ? ? 06/20/2012 Wellbutrin ? ? 06/20/2012 Problems None recorded. Procedures None recorded. Vaccine List None recorded. Social History Tobacco Smoking Status Former Smoker What is your level of alcohol consumption? None Has tobacco cessation counseling been provided? N Are you currently employed? N What was the date of your most recent tobacco 03/16/2022 screening? Do you or have you ever used any other forms of N tobacco or nicotine? What is your level of caffeine consumption? Moderate Do you use any illicit or recreational drugs? N When did you quit smoking? 16+yearssincelastcigarette How many years have you smoked tobacco? 30 Recreational Drug Use N What is your relationship status? Family History Relation Problem Onset Age of Age Notes Mother Family history of breast cancer (No Information) N/A (No Notes) Mother Family history of cardiac (No Information) N/A (No Notes) disorder Father Family history of cardiac (No Information) N/A (No Notes) disorder Functional Status Unknown. Past Encounters 03/16/2022 Pain in Testicle; Lower Urinary Tract Sy mptoms Due to Benign Prostatic Hypertrophy Chong Rivera MD: [address] [place] [phone], Ph. History of Present Illness Note: <div>61 yo male with H/O low testosterone, ED, and BPH - PMHX significant for HTN, HLD, DM (type 2), and seizures. He used Testosterone 200 mg IM q3 weeks and Edex 20 mcg injections in the past. He is on Flomax 0.8 mg daily. </div><div> </div><div>03/16/22 - He presents for evaluation of Right testicular pain. It started in July 2021 - dull ache in Right testicle - worse with sitting or lifting. The pain has gradually increased over the past several months (still worse with sitting or lifting) and now radiates into the Right groin. He denies trauma to the area - no redness or swelling. He denies back or leg pain. Testicular U/S (12/21/21) and CT (Abd/pelvis - 12/20/21) were unremarkable. He voids every 2-3 hours during the day and 2x/night. He notes a slow stream - denies urgency or dysuria.</div><div>- UA - no blood - no LE</div><div> </div><div>PSA - 0.26 (2/8/16) </div><div>- 0.29 (04/08/16) </div><div>- 0.36 (11/18/16) </div><div>- 0. 30 (01/08/18) </div><div>- 0.27 (12/10/18)</div><div>- 0.22 (01/21/20)</div&gt ;<div>- 0.18 (02/03/21)</div><div> </div><div>Testosterone - 504 ng (08/10/15) </div><div>- 687 (04/08/16) - Free - 22.0 </div><div>- 563 (11/18/16) - Free - 15.8 </div><div>- 889 (01/08/18) - Free - 29.3 </div><div>- 1770 (08/17/18) - Free - 83.3</div><div>- 173 (01/21/20) </div><div> </div><div>Hgb - 11.1 (08/10/15) </div><div>- 12.0 (04/08/16) </div><div>-12.2 (11/18/16) </div><div>- 10.6 (01/08/18) </div><div>- 12.7 ()</div><div>
</div><div>Testicular U/S (12/21/21) - normal - no testicular masses, varicocele, or hydrocele </div><div>
</div><div>CT scan (12/20/21) - no stones, renal masses, or hydronephrosis</div> Review of Systems None recorded. Physical Exam ? Urology Male Reported By: Patient Constitutional: General Appearance: healthy- appearing, well-nourished. Level of Distress: no acute distress Abdomen: Inspection and Palpation: so ft, no tenderness, no masses, no CVA tenderness. Hernia: none pal pable Male : Penis: no discharge, no lesi ons, circumcised. Scrotum: no cysts, no lesions, no edema, no tender ness. Testes: normal testes, no swelling; testicle and epididymis (Aidan ateral) are not tender- has some tenderness at the Right exte rnal ring Rectal: Anus, Perineum, Rectum: norm al tone, no hemorrhoids, no lesions, no fissures, no masses. Prostat e: non-tender, smooth / no nodules, enlarged; 35 gm - no nodule Skin: General Appearance of extrem ities: no edema. Inspection and palpation: normal temperatur e, no rash, no lesions
--- OUTSIDE RECORDS SUMMARY | 2022-04-04 10:23 | XMS_ITS ---
:1960 Author Care Team Providers Name Role Phone JESUS ORTIZ Primary Care Provider [phone] Allergies Code Code System Name Reaction Severity Status Onset 269844 RxNorm Celexa ? ? Active 06/20/2012 64675 RxNorm Prevacid ? ? Active 06/20/2012 Wellbutrin ? ? Active 2 Medications Name Status Start Date Stop Date ? ? Accu-Chek Guide Glucose Meter Active ? No t available USE TO TEST BLOOD SUGAR Accu-Chek Guide test strips Active ? Not available USE TO TEST BLOOD SUGAR TWICE DAILY Accu-Chek Softclix Lancets Active ? Not a vailable USE TO TEST BLOOD SUGAR TWICE DAILY atorvastatin 80 mg tablet Active ? Not av ailable TAKE ONE TABLET BY MOUTH ONE TIME DAILY cyclobenzaprine 10 mg tablet Completed ? Take 1 Tablet (10 mg) by mouth 3 times daily if needed for Musc le Spasm. fentanyl 100 mcg/hr transdermal patch Completed ? 03/16/2022 Apply 1 Patch on dry, clean, hairless s kin every 48 hours. Use dates: 02/22/2021-03/23/2021 fentanyl 12 mcg/hr transdermal patch Completed ? 03/16/2022 Apply 1 Patch on dry, clean, hairless s kin every 48 hours. Use dates: 06/28/2021-07/27/2020 fentanyl 25 mcg/hr transdermal patch Completed ? 03/16/2022 Apply 1 Patch on dry, clean, hairless s kin every 48 hours. Use dates: 06/28/2021-07/27/2021 fentanyl 50 mcg/hr transdermal patch Completed ? 03/16/2022 Apply 1 Patch on dry, clean, hairless s kin every 48 hours. USE DATES: 05/29/2021-06/27/2021 fentanyl 75 mcg/hr transdermal patch Completed ? 03/16/2022 Apply 1 Patch on dry, clean, hairless s kin every 48 hours. USE DATES: 04/29/2021-05/28/2021 FreeStyle Jody 14 Day Sensor kit Active ? Not available To be used to read blood sugars per offset plate maker's directions. FreeStyle Jody 2 [place] Active ? Not bruno ilable To be used to read blood sugars per offset plate maker's directions. furosemide 20 mg tablet Active ? Not avai lable TAKE ONE TABLET BY MOUTH TWICE DAILY furosemide 40 mg tablet Active ? Not avai lable TAKE 0.5 TABLETS BY MOUTH TWICE DAILY. glipizide ER 5 mg tablet, extended release 24 hr Active ? Not available TAKE 1 TABLET BY MOUTH BEFORE BREAKFAST AND 2 TABLETS BEFORE DI NNER. lamotrigine 150 mg tablet Active ? Not av ailable TAKE ONE TABLET BY MOUTH TWICE DAILY levofloxacin 500 mg tablet Completed ? 03/16 TAKE ONE TABLET BY MOUTH ONE TIME DAILY meloxicam 15 mg tablet Active ? Not avail able TAKE ONE TABLET BY MOUTH ONE TIME DAILY metformin 1,000 mg tablet Active ? Not av ailable Take 1 Tablet (1,000 mg) by mouth two times daily with meals. metformin 500 mg tablet Active ? Not avai lable TAKE TWO TABLET BY MOUTH TWICE DAILY WITH MEALS methadone 10 mg tablet Completed ? 2 take 1 tablets by mouth every 8 hours. max 3 per day Use dates: 05/29/2021-06/27/2021 pantoprazole 20 mg tablet,delayed release Active ? Not available TAKE ONE TABLET BY MOUTH ONE TIME DAILY prednisone 20 mg tablet Completed ? 03/16/20 22 TAKE TWO TABLETS BY MOUTH DAILY WITH FOOD propranolol 20 mg tablet Active ? Not bruno ilable TAKE ONE TABLET BY MOUTH TWICE DAILY NEEDED FOR TREMOR. tamsulosin 0.4 mg capsule Active ? Not av ailable Take 2 Capsules (0.8 mg) by mouth once daily after a meal. Problems None recorded. Procedures None recorded. Results Lab Results Date Name Specimen Result [...] [address], [place] 03/16/2022 Urinalysis, ? No observation ? ? ? Dipstick recorded. 01/20/2022 PSA, Serum or ? No observation ? ? ? Plasma recorded. Past Encounters 03/16/2022 Pain in Testicle; Lower Urinary Tract Sy mptoms Due to Benign Prostatic Hypertrophy Chong Rivera MD: [address], [place] [address], Ph. Social History Tobacco Smoking Status Former Smoker Vaccine List None recorded. Plan of Care Reminders Provider Appointments None recorded. ? ? Lab None recorded. ? ? Referral None recorded. ? ? Procedures None recorded. ? ? Surgeries None recorded. ? ? Imaging None recorded. ? ? Vitals Height Weight BMI 5 ft 8 in 165 lbs 25.1 kg/m2
== END 2022-04-04 10:21 | disposition home or self-care (01) ==
LOC: MRI 10:21
PROVIDERS: PCP Physician Assistant Medical; Visit Provider Orthopaedic Surgery Sports Medicine
DX: M25.562 Pain in left knee (principal); S83.242A Other tear of medial meniscus, current injury, left knee, initial encounter; M23.252 Derangement of posterior horn of lateral meniscus due to old tear or injury, left knee; S83.282A Other tear of lateral meniscus, current injury, left knee, initial encounter; M94.262 Chondromalacia, left knee
CPT/HCPCS: 73721

== ENCOUNTER 2022-10-10 14:18 | Outpatient (CLI) | payer MEDICARE, BC, SELFPAY ==
--- NOTE | 2022-10-10 14:30 | MR_ITS ---
[address] [address] Phone:?[phone] Fax:?[phone] Referring Physician Information: Kirt Corley [address] [facility] [address] Phone:?[phone] Fax:?[phone] Patient:?Csaey Mcintosh D.O.B:?1960 Sex:?Male Phone:?[phone] [facility] MRN:?[id number] Exam Date:?10/10/2022 ? EXAM: MRI of the LEFT ANKLE, including HINDFOOT, without contrast CLINICAL: Male, 62 years old, with left ankle pain, 3 months post Nagy A distal fibula fracture. INDICATION: Evaluate for internal derangement etiology. PRIOR SURGERY: None reported. PLAIN FILMS: None available. COMPARISONS: No prior MRIs available. TECHNICAL: Using a 1.5T MR scanner and a localizing surface coil: 3.0 mm?sagittals: PD, T2, STIR 3.0 mm?coronals: PD, T2 3.0 mm?axials: PD, T2 SEDATION: None. CONTRAST: None. IMPRESSION: 1. Nondisplaced distal fibular fracture without convincing robust solid bony union at this time. 2. Chronic residua of lateral ligament sprain injury without acute sprain or disruption. 3. No other ligament injuries. 4. No tibiotalar or other osteochondral lesions. 5. Chronic tendinosis and splaying of the peroneus brevis tendon without rupture or pathologic tenosynovitis at this time. 6. Prominent chronic atrophy and fatty infiltration of plantar foot musculature. FINDINGS: Tibiotalar joint: Effusion: Small tibiotalar joint effusion. Ganglion cyst: None. Osteochondral surfaces: No osteochondral abnormality. Loose bodies: No demonstrable loose bodies. Osseous structures: Transverse oblique fracture of the distal fibula metaphysis appears nondisplaced (sagittal images 19-24; coronal images 16-23). MRI examination is not considered optimal for evaluation of fracture healing although the MR appearance would suggest incomplete healing at this time. Remainder of osseous structures are intact without other fractures.. Os trigonum: No os trigonum or abnormally prominent Stieda's process. Tarsal coalition: No calcaneonavicular, talocalcaneal or cubonavicular coalition. Subtalar joint: Effusion: Physiologic. Articular cartilage: No osteochondral abnormality. Tarsal joints: Talonavicular: Unremarkable. Calcaneocuboid: Unremarkable. Naviculocuneiform: Unremarkable. Tarsometatarsal: Unremarkable. Lateral ligaments: Anterior talofibular: Attenuation along with small chronic marrow-containing ossicle adjacent to the fibula in keeping with chronic healed residua of sprain injury without acute sprain, disruption or defined anterolateral impingement meniscoid lesion (axial PD & T2 series 3 & 4, image 16). Calcaneofibular: Also intact although difficult to exclude old healed sprain injury. Posterior talofibular: No injury. Medial deltoid ligaments: Deep: Intact posterior tibiotalar ligament. Superficial: Intact tibionavicular, tibiospring and tibiocalcaneal ligaments. Syndesmotic ligaments: Intact anterior inferior tibiofibular (AITFL), posterior inferior tibiofibular (PITFL) and interosseous ligaments. Intact accessory AITFL (Chardon's ligament) without demonstrable pathologic thickening, signal alteration or adjacent synovitis. Hindfoot ligaments: Sinus tarsi: Intact lateral cervical and medial interosseous ligaments. Spring: Intact superomedial, medioplantar oblique and inferoplantar longitudinal ligaments. Bifurcate: Intact lateral calcaneonavicular and medial calcaneocuboid ligaments. Calcaneocuboid: Intact medial, dorsolateral and plantar ligaments. Lisfranc ligament complex: Intact dorsal, interosseous and plantar ligaments. Flexor tendons: Posterior tibial: Normal, without tear, tendinopathy, or convincing pathologic tenosynovitis. Moderate-sized type II accessory navicular ossicle is not associated with marrow edema of that ossicle or the adjacent medial navicular tubercle (axial image 21; sagittal image 8). Flexor digitorum longus: Normal. Flexor hallucis longus: Normal, without convincing pathologic tenosynovitis. Peroneus brevis: Chronic tendinosis including prominent splaying of the peroneus brevis tendon at and distal to level of the lateral malleolus without full- thickness rupture as well as without evidence of pathologic tenosynovitis at this time (axial images 8-22). Peroneus longus: Normal. The superior peroneal retinaculum appears intact. Extensor tendons: Tibialis anterior: Normal, without tendinopathy, tenosynovitis or tear. Extensor hallucis longus: Normal. Extensor digitorum longus: Normal. Achilles tendon: No tendinopathy or tear. No retrocalcaneal bursitis. Plantar aponeurosis: No ongoing plantar fasciopathy. Tarsal tunnel: No masses or demonstrable findings of tarsal tunnel syndrome. [facility] Electronically signed on 10/12/2022 6:49:00 AM by Hernan Garcia M.D.
== END 2022-10-10 14:19 | disposition home or self-care (01) ==
LOC: MRI 14:20
PROVIDERS: PCP Student in an Organized Health Care Education/Training Program; Visit Provider Physician Assistant
DX: M25.572 Pain in left ankle and joints of left foot (principal); S82.832A Other fracture of upper and lower end of left fibula, initial encounter for closed fracture; S93.402A Sprain of unspecified ligament of left ankle, initial encounter
CPT/HCPCS: 73721

== ENCOUNTER 2024-01-22 06:02 | Day surgery (SDC) | payer MEDICARE, BC, SELFPAY ==
[2024-01-22] VITALS (8 sets, daily range): BP systolic 109–131; BP diastolic 74–80; PULSE 63–77; RESP 16–24; TEMP 36.6; O2SAT 96–99; BMI 25.7
--- OUTSIDE RECORDS SUMMARY | 2024-01-22 06:04 | XMS_ITS | Clinical Summary ---
Author Organization [facility] Address [address] [place] [address] Care Team Providers Care Signal Wirer Name Role Phone Unavailable Primary Care Provider Unavailabl e Source Comments Patient records contain information from all sites at [facility]. For routine questions regarding patient records, call [phone] during business hours, M-F 8:00 AM - 5:00 PM Central Time. Record requests for emergency care only can be directed to [phone] at any time.[facility] Social History Tobacco Use Types Packs/Day Years Used Date Smoking Tobacco: Never Assessed Nutrition Answer Date Recorded Nutrition: EVOO Fat Source Unknown 01/13 Nutrition: Servings of Fruits/Vegetables per Day Not on file 01/13/2023 Dental Answer Date Recorded Dental: Regular Dentist Unknown 01/14/20 23 Sex and Gender Information Value Date Recorded Sex Assigned at Not on file Gender Identity Not on file Sexual Orientation Not on file Plan of Treatment Health Maintenance Due Date Last Done Comments CT Colonography 1958 Cologuard 1960 Colonoscopy 1960 Colorectal Cancer Screening 1958 FIT 1958 HIV Screening 1960 Hepatitis C Screening 1958 COVID-19 Vaccine (#1) 1963 Zoster Vaccines (2 of 2) 2019 04/17/2019 Pneumococcal vaccine (65+ ye ars) (1 of 1 - PCV) 2023 Depression Screening (Annual PHQ-2) 07/03/2023 Fall Risk Screen (Annual) 07/03/2023 Influenza Vaccine (#1) 2024 9, 04/04/2016, 04/08/2014, Additional history exists Fasting Glucose for Diabetes Screening 03/10/2025 03/10/2022, 02/28/2022, 01/27/2022, Additional history exists DTaP,Tdap,and Td Vaccines (3 - Td or Tdap) 04/17/2029 04/17/2019, 02/12/2007, 01/24/2005 ALEXANDRO dimas [phone]
--- OUTSIDE RECORDS SUMMARY | 2024-01-22 06:04 | XMS_ITS | Referral Summary ---
Author Organization [facility] Address [address] [place] [address] Care Team Providers Care Last Scourer Name Role Phone Unavailable Primary Care Provider Unavailabl e Source Comments Patient records contain information from all sites at [facility]. For routine questions regarding patient records, call [phone] during business hours, M-F 8:00 AM - 5:00 PM Central Time. Record requests for emergency care only can be directed to [phone] at any time.[facility] Social History Tobacco Use Types Packs/Day Years Used Date Smoking Tobacco: Never Assessed Nutrition Answer Date Recorded Nutrition: EVOO Fat Source Unknown 01/13 Nutrition: Servings of Fruits/Vegetables per Day Not on file 01/13/2023 Dental Answer Date Recorded Dental: Regular Dentist Unknown 01/14/20 Sex and Gender Information Value Date Recorded Sex Assigned at Not on file Gender Identity Not on file Sexual Orientation Not on file Plan of Treatment Not on file
--- OUTSIDE RECORDS SUMMARY | 2024-01-22 06:04 | XMS_ITS | Continuity of Care Document ---
Author Organization [facility] Address [address] [address] [place] [address] Phone Care Team Providers Care Orthopedic Assistant Name Role Phone Isauro Loredo MD, Edvin Unavailable Unavailabl e Allergies, Adverse Reactions, Alerts Substance Reaction Status Criticality omeprazole increased acid reflux Active No Inf ormation CITALOPRAM HYDROBROMIDE emotionally unstable, angry Ac tive No Information pregabalin Active No Information BUPROPION HCL suicidal Active No Information Medications Medication Instructions Dosage Effective Dates (start - stop) Status Comments MiralaxBisacodylMagCit Colon Prep Use as directed - Active omeprazole 20 mg capsule,delayed release take 1 capsule by oral route every day before a meal 20 MG - Active hydromorphone 4 mg tablet take 1 tablet by oral route every 4 - 6 hours as needed 4 MG - Active Flomax 0.4 mg capsule take 2 capsule by oral route every day 1/2 hour following the same meal each day 0.8 MG - Active methadone 10 mg tablet take 4 Tablet (40MG) by oral route every 6 hours 40 MG - Active dicyclomine 10 mg capsule take 1 capsule (10MG) by oral route 3 times every day 10 MG - Active testosterone cypionate 200 mg/mL IM Oil inject 1 milliliter (200MG) by intramuscular route every 2 weeks 200 MG - Active methocarbamol 750 mg tablet take 1 table t (750MG) by oral route 2 times every day 750 MG - Active clonazepam 1 mg tablet take 2 Tablet (2MG) by oral route every bedtime 2 MG - Active Duragesic 100 mcg/hr Transderm Patch apply 1 patch (100MCG/H) by transdermal route every 48 hours 100 MCG/H - Active carbamazepine 200 mg tablet take 1 table t (200MG) by oral route 2 times every day 200 MG - Active Edex 20 mcg Intracavernosal Kit inject 1 milliliter (20MCG) by intra-cavernosal route x 1 dose, 10-30 minutes before intended intercourse - Active Lipitor 10 mg tablet take 1 tablet (10MG) by oral route every day 10 MG - Active Fish Oil 1,000 mg capsule take 3 by Oral route every day - Active cyanocobalamin (vitamin B-12) 1,000 mcg tablet take 1 by Oral route every day 1 - Active Glucosamine Chondroitin Maximum Strength 500 mg-400 mg capsule take 3 by Oral route every day 3 - Active Vitamin D3 2,000 unit tablet take 1 Tablet by Oral route every day 1 Tablet - Active aspirin 325 mg tablet take 1 tablet (325MG) by oral route every day 325 MG - Active CoQ-10 100 mg capsule take 1 Capsule by Oral route every day 1 Capsule - Active multivitamin tablet take 1 Tablet by Oral route every day 1 Tablet - Active folic acid 400 mcg tablet take 2 Tablet (0.8MG) by oral route every day 0.8 MG - Active Procedures Procedure Date Offic/outpt E&m Estab Low-mod 4 Routine Serum Collection Influenza vaccine-quadrivalent 14 Immuniz Admin; 1/combo Vacc/to [address]; Hg/pltlt Ct Auto/compl 14 Comp Metabolic Panel Offic/outpt E&m Estab Low-mod 3 Offic/outpt E&m Estab Minor Offic/outpt E&m Estab Mod-hi 2 13 Ugi Endo; W/bx 1/mx Colonoscopy Flex; W/bx 1/mx Offic/outpt E&m New Mod-hi Routine Serum Collection Bld Ct; Hg & Platelet Ct Autom 13 Comp Metabolic Panel Thyroid Stim Hormone Prothrombin Time Advance Directives Directive Yes / No Effective Date File Name No Information Encounters Encounter Description Practice Location Reason(s) For Visit Diagnoses Date Provider Providers Copied on Encounter [facility], [address] [address], [place], [place], [id number], [place] tel:[phone] [facility] No Information 3 Isauro Pardo. [address] [facility], [address], [id number], [place]. tel:[phone] [facility], [address] [address], [place], [place], [id number], [place] tel:[phone] [facility] No Information 9 Maia Forte. [address] [facility], [address], [id number], [place]. tel:[phone] [facility], [address] [address], [place], [place], [id number], [place] tel:[phone] [facility] No Information 8 Vick Renee. [address] [facility], [address], [id number], [place]. tel:[phone] Offic/outpt E&m Estab Low-mod [facility], [address] [address], [place], [place], [id number], [place] tel:[phone] [facility] GI Symptoms or Concerns (chief complaint) Abd Pain GeneralizedDi etary Surveil/couns el 4 Jelena Winter. [address] [facility], [address], [id number], [place]. tel:[phone] Referring Provider: Sanjeev Segovia, [address], [place], [address]. tel:[phone] Offic/outpt E&m Estab Low-mod [facility], [address] [address], [place], [place], [id number], [place] tel:[phone] [facility] Abd Pain GeneralizedAb d Pain GeneralizedAb d Pain Generalized 3 Jelena Winter. [address] [place] [address], [address], [id number], [place]. tel:[phone] Referring Provider: Referral Self, USE FOR SELF REFERRALS. Offic/outpt E&m Estab Minor [facility], [address] [address], [place], [place], [id number], [place] tel:[phone] [facility] Weight loss (chief complaint) Weight LossWeight LossAbd Pain Generalized 3 Jelena Winter. [address] [place] [address], [id number], [place]. tel:[phone] Referring Provider: Referral Self, USE FOR SELF REFERRALS. Offic/outpt E&m Estab Mod-hi 2 [facility], [address] [address], [place], [place], [id number], [place] tel:[phone] [facility] Weight loss (chief complaint) Abdominal pain (chief complaint) Abd Pain GeneralizedWe ight LossAbn X-ray GI Tract 3 No Information Referring Provider: Referral Self, USE FOR SELF REFERRALS. [facility], [address] [address], [place], [place], [id number], [place] tel:[phone] [facility] No Information 3 Star Segovia. [address], [id number], [place]. tel:[phone] Referring Provider: Sanjeev Segovia, [address], [place], [address]. tel:[phone] Offic/outpt E&m New Mod-hi [facility], [address] [address], [place], [place], [id number], [place] tel:[phone] [facility] Abdominal pain (chief complaint) Weight loss (chief complaint) Epigastric PainWeight LossAbn Blood Chemistry [facility] 3 Jelena Winter. [address] [facility], [address], [place], [place], [id number], [place]. tel:[phone] Referring Provider: Sanjeev Barrios MD E, [address] [facility], [place], [address]. tel:[phone] Family History Family Member Type Diagnosis Age At Onset Mother Problem (finding) Heart issues First degree family history Problem (finding) No history of Cancer, colon Mother Problem (finding) malignant neop lasm of breast in first degree relative Father Problem (finding) Chronic Headaches 38 First degree family history Problem (finding) Cancer, breast 40 Brother Problem (finding) Cardiovascular disease First degree family history Problem (finding) No history of Crohn's Son Problem (finding) hypertension Father Problem (finding) 38 Father Problem (finding) Cardiovascular disease 38 Son Problem (finding) Alive and well Daughter Problem (finding) GERD Mother Problem (finding) osteoporosis First degree family history Problem (finding) No Family history of No history of Colon Polyps First degree family history Problem (finding) No history of Ulcerative Colitis Immunizations Vaccine Date Status Comments zoster vaccine recombinant administered N ote: [facility] bi-directional interface ; Source: Other Registry tetanus toxoid, reduced diphtheria toxoid, and acellular pertussis vaccine, adsorbed administered Note: [facility] bi-direct ional interface ; Source: Other Registry Fluzone Quad 6mo or older administered Note: [facility] bi-direct ional interface ; Source: Other Registry Fluzone Quad 6mo or older administered Note: [facility] bi-direct ional interface ; Source: Other Registry Fluzone Quad 6mo or older administered Note: [facility] bi-direct ional interface ; Source: Other Registry Flu (split) (3 yrs or older) administered Note: VIS given ; Source: New Immunization Record Engerix-B administered Note: [facility] bi-d irectional interface ; Source: Other Registry Engerix-B administered Note: [facility] bi-d irectional interface ; Source: Other Registry Engerix-B administered Note: [facility] bi-d irectional interface ; Source: Other Registry Influenza, seasonal, injectable, preservative free administered Note: [facility] bi-directional interface ; Source: Other Registry Influenza, seasonal, injectable administered Note: [facility] bi-direct ional interface ; Source: Other Registry Influenza, seasonal, injectable administered Note: [facility] bi-direct ional interface ; Source: Other Registry Influenza, seasonal, injectable administered Note: [facility] bi-direct ional interface ; Source: Other Registry tetanus and diphtheria toxoids, adsorbed, preservative free, for adult use (5 Lf of tetanus toxoid and 2 Lf of diphtheria toxoid) administered Note: [facility] C bi- directional interface ; Source: Other Registry Influenza, seasonal, injectable administered Note: [facility] bi-direct ional interface ; Source: Other Registry Payers Payer name Insurance type Covered constitution party ID Authoriza stefanie(s) [employer] [facility] [id number] Social History Type Description Quantity Date Captured Comments Sex Male Smoking Status No Information Chief Complaint And Reason For Visit No Information Reason For Referral Reason For Referral No Information Plan Of Treatment Date Type Action Status Goal Lifestyle education regardin g diet completed Referral Ordered: Abdomen and Pelvis CT WITHOUT and WITH Contrast Appointment date/timeframe: -today ordered History Of Present Illness Encounter Date Complaint History Of Prese nt Illness GI Symptoms or Concerns The sahil ent is a very pleasant 53-year-old man who presents to GI Clinic today in followup for abdominal pain. The patient was first seen by GI slightly over one year ago. At that time, he was having postprandial abdominal pain and weight loss. He underwent an abdominal ultrasound which showed a 1 cm gallbladder polyp. EGD and colonoscopy were both done. He had reactive gastropathy and several colon polyps were removed. Repeat colonoscopy was recommended in five years. Of note, the procedures were done with MAC sedation due to the patient's history of methadone use. The patient then had a CT scan of his abdomen which showed a question of the small area of thickness of the small intestine. That was December 2012 and felt to be transient and possibly infectious.The patient underwent a cholecystectomy in January 2013. After the cholecystectomy, his abdominal symptoms improved greatly and he was able to regain weight. He had some skin sensitivity over the side of his incisions. Functional Status Date Functional Assessmen t No Information Instructions Date Instruction Additional Infor teddy 1. Check CBC, CMP2. CT scan of the abdomen and pelvis3. Start Miralax once per day4. Follow up will depend on the CT results and how you are feeling on the miralax Related to Abd Pain Generalized Lifestyle education regarding di et Related to Dietary surveillance and counseling Assessments Type Assessment Date No Information Patient Care Teams Name Effective Dates (start - stop) Status Members No Information
--- OUTSIDE RECORDS SUMMARY | 2024-01-22 06:04 | XMS_ITS ---
Author Organization [facility] Address [address] [place] [address] Care Team Providers Care Dispensing Optician Apprentice Name Role Phone Unavailable Unavailable Unavailable Surgery Details Not on file Complications Check Surgery Details section. Procedure Estimated Blood Loss Check Surgery Details section. Procedure Findings Check Surgery Details section. Procedure Specimens Taken Check Surgery Details section.
--- OUTSIDE RECORDS SUMMARY | 2024-01-22 06:04 | XMS_ITS | Continuity of Care Document ---
Author Organization [facility] Address [address] [place] [address] Phone Care Team Providers Care Furnace Liner Name Role Phone Geovany Berry MD Unavailable Unavailab le Allergies, Adverse Reactions, Alerts Substance Reaction Status Criticality CITALOPRAM HYDROBROMIDE unknown Active No I nformation OMEPRAZOLE MAGNESIUM unknown Active No Info rmation omeprazole unknown Active No Information BUPROPION HCL unknown Active No Information pregabalin unknown Active No Information Medications Medication Instructions Dosage Effective Dates (start - stop) Status Comments lansoprazole 15 mg capsule,delayed release - Active dicyclomine 10 mg capsule - Active TESTOSTERONE (unknown strength) Not Available - Active Duragesic 100 mcg/hr transdermal patch - Active METHADONE HCL (unknown strength) Not Available - Active Flomax 0.4 mg capsule - Active Edex 20 mcg intracavernosal kit - Active Lipitor 80 mg tablet - Active LAMOTRIGINE (unknown strength) Not Available - Active GABAPENTIN (unknown strength) Not Available - Active FISH OIL (unknown strength) Not Available - Active VITAMIN B-12 (unknown strength) Not Available - Active DURLAZA (unknown strength) Not Available - Active MELATONIN (unknown strength) Not Available - Active FLUCONAZOLE (unknown strength) Not Available - Active CLOBETASOL PROPIONATE (unknown strength) Not Available - Active POTASSIUM (unknown strength) Not Available - Active LASIX (unknown strength) Not Available - A ctive CLINDAMYCIN HCL (unknown strength) Not Available - Active NUVIGIL (unknown strength) Not Available - Active PROPRANOLOL HCL ER (unknown strength) Not Available - Active SINGULAIR (unknown strength) Not Available - Active CLARINEX (unknown strength) Not Available - Active Flonase 50 mcg/actuation nasal spray,suspension - Active PANOXYL (unknown strength) Not Available - Active Procedures Procedure Date Office/Outpatient Visit,New, Mod 2015 Advance Directives Directive Yes / No Effective Date File Name No Information Encounters Encounter Description Practice Location Reason(s) For Visit Diagnoses Date Provider Providers Copied on Encounter Office/Outpati ent Visit, [facility] , [address], [place], [place], [id number], [place] tel:[phone] [facility] [place] Spinal stenosis, lumbar region Kristi walker [facility], [address], [address], [place], [place], [id number], [place]. tel:[phone] Referring Provider: [facility] Nelson [facility] [address] [facility] [address], [place], [address]. tel:[phone] Family History Family Member Type Diagnosis Age At Onset No Information Payers Payer name Insurance type Covered libertarian ID Lamonte watts(charla) Kizzy [employer] [place] [id number] [place] [id number] [facility] [id number] Social History Type Description Quantity Date Captured Comments Alcohol Use Details Unknown Caffeine Use Details Unknown Tobacco Use Status Never smoked tobacco 2015 Smoking Status Never smoker Non-Smoking Tobacco Use Details : No Details Available : No Details Available Sex Male Vital Signs Date / Time: Height Weight BMI Pulse Rate Blood Pressure Temperature Respiratory Rate Body Surface Area Head Circumference Head Circ. Percentile Wt./Efe. Percentile BMI percentile Pulse Ox Inhaled Ox 10:23 AM 69.00 in 94.801 kg (209.00 lbs) 30.8 6 kg/m eter (2) 64 /min 113/59 mm[Hg] Chief Complaint And Reason For Visit No Information Reason For Referral Reason For Referral No Information History Of Present Illness Encounter Date Complaint History Of Prese nt Illness No Information Functional Status Date Functional Assessmen t No Information Instructions Date Instruction Additional Infor mation Weight Management Education Rela dwaine to Overweight Weight management: I nstructed to return to General Practitioner timeframe: 1 Month. Related to Overweight Assessments Type Assessment Date assessment Spinal stenosis, lumbar region N ov- Patient Care Teams Name Effective Dates (start - stop) Status Members No Information
--- OUTSIDE RECORDS SUMMARY | 2024-01-22 06:05 | XMS_ITS | Data Portability ---
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 Plan of Treatment Reminders Order Date Submit Date Provider Last Modified By Organization Details Last Modified Time Details Appointments None recorded. Lab urinalysis , dipstick 2021 [facility], [address], [place], [address], 14:15:12 culture, urine 2021 [facility], [address], [address], [place], [address], 11:48:05 urinalysis , dipstick 2021 [email or web address], [address], [place], [address], 12:40:20 Referral None recorded. Procedures None recorded. Surgeries None recorded. Imaging CT, abdomen + pelvis, w/ contrast 2021 [facility], [address], [place], [address], 08:50:59 Medication Orders meloxicam 15 mg tablet 2021 [id number], [address] [address], [place], [address], 19:06:13 Patient TargetsNo targets recorded. Patient Instructions Encounter Date Encounter Id Patient Instructions Last Modified By Organization Details Last Modified Time 06/22/2022 [id number] Telephone - 3 minutes Not available 06/22/2022 12:50:04 Reason for Referral Pain Management Referral for Referral needed Referring Physician: Chong Rivera, Urology, Encounter Date: 04/04/2022 Results Created Date Observation Date Name Description Value Unit Range Abnormal Flag LastModifiedBy Organization Detail LastModifiedTime 03/16/2003/16/2022 urina lysis , dipst ick Color-Status Yellow Not Available [facility] [address], [place], [address], 03/16/2022 14:14:06 03/16/2003/16/2022 urina lysis , dipst ick Clarity-Stat us Clear Not Available [facility] [address], [place], [address], 03/16/2022 14:14:06 03/16/2003/16/2022 urina lysis , dipst ick Glucose-Stat us Negati ve Not Available [facility] [address], [place], [address], 03/16/2022 14:14:06 03/16/2003/16/2022 urina lysis , dipst ick Bilirubin-St atus Negati ve Not Available [facility] [address], [place], [address], 03/16/2022 14:14:06 03/16/2003/16/2022 urina lysis , dipst ick Ketones-Stat us Negati ve Not Available [facility] [address], [place], [address], 03/16/2022 14:14:06 03/16/2003/1603/16/2022 urina lysis , dipst ick Nitrates-Sta tus negati ve Not Available [facility] [address], [place], [address], 03/16/2022 14:14:06 03/16/20 22 03/16/2022 urina lysis , dipst ick Blood-Status Negati ve Not Available [facility] [address], [place], [address], 03/16/2022 14:14:06 03/16/20 22 03/16/2022 urina lysis , dipst ick Leuko-Status Negati ve Not Available [facility] [address], [place], [address], 03/16/2022 14:14:06 04/20/2004/20/2022 URINE CULTU RE final report MICROB IOLOGY RESULT S Not Available [facility] [address], [place], [address], 04/22/2022 11:48:05 04/20/2004/20/2022 urina lysis , dipst ick Color-Status Yellow Not Available [facility] [address], [place], [address], 04/20/2022 12:12:26 04/20/2004/20/2022 urina lysis , dipst ick Glucose-Stat us 500 Not Available [facility] [address], [place], [address], 04/20/2022 12:12:26 04/20/2004/20/2022 urina lysis , dipst ick pH-Status 5.0 Not Available [facility] [address], [place], [address], 04/20/2022 12:12:26 04/20/2004/20/2022 urina lysis , dipst ick Blood-Status Trace Not Available [facility] [address], [place], [address], 04/20/2022 12:12:26 04/20/20 22 04/20/2022 urina lysis , dipst ick Leuko-Status Negati ve Not Available [facility] [address], [place], [address], 04/20/2022 12:12:26 04/26/20 22 04/20/2022 bladd er scan (PROC ) No observ ation record ed. BARCODE Not Available 04/26/2022 09:15:21 05/23/20 22 04/28/2022 CT, abdom en + pelvi s, w/ contr ast No observ ation record ed. [email or web address] [facility] [address] , [place], [address], 06/03/2022 17:03:11 05/23/20 22 05/16/2022 CT, chest , w/o contr ast No observ ation record ed. Not Available 05/23/2022 08:51:55 Result Notes None recorded. Procedures Surgical History Date Name Laterality Status Provider Name and Address Organization Details Recorded Time Bladder Scan completed Chong Rivera MD [address] [place] [address],[address], [place], [address], [facility] 04/20/2022 12:12:05 Imaging Results Imaging Date Name Status LastModified by Organiz ation Details LastModified Time 04/20/2022 bladder scan (PROC) completed BARCODE Information not available 04/26/2022 09:15:21 04/28/2022 CT, abdomen + pelvis, w/ contrast completed [email or web address] [facility] [address], [place], [address], 06/03/2022 17:03:11 05/16/2022 CT, chest, w/o contrast completed Information not available 05/23/2022 08:51:55 Procedure Notes None recorded. Medical Equipment None Reported. Allergies Allergen ID Allergen Name Allergen Category Reaction Reaction Severity Criticality Documentation Date Start Date Code Code System Note Provider Name and Address Organization Details Recorded Time 595685 Celexa medicatio n Not available Not available Not available 12/19/20192011 38397 8 RxNorm Not Available [facility] 0 00:44:36 055002 Prevacid medicatio n Not available Not available Not available 12/19/20192011 91329 RxNorm Not Available [facility] 0 00:44:36 528441 Wellbutri n medicatio n Not available Not available Not available 12/19/20192011 40085 RxNorm Not Available [facility] 0 00:44:36 Medications Name Sig Start Date Stop Date Status Note LastModified by Organization Details LastModified Time cyclobenzap rine 10 mg tablet TAKE ONE TABLET BY MOUTH THREE TIMES DAILY active Not Available Not Available No t Available furosemide 40 mg tablet TAKE 0.5 TABLETS BY MOUTH TWICE DAILY. active Not Available Not Available No t Available lamotrigine 150 mg tablet TAKE ONE TABLET BY MOUTH TWICE DAILY active Not Available Not Available No t Available metformin 500 mg tablet TAKE TWO TABLET BY MOUTH TWICE DAILY WITH MEALS active Not Available Not Available No t Available fentanyl 50 mcg/hr transdermal patch Apply 1 Patch on dry, clean, hairless skin every 48 hours. USE DATES: -03/16 completed Not Available Not Available Not Available atorvastati n 80 mg tablet TAKE ONE TABLET BY MOUTH ONE TIME DAILY active Not Available Not Available No t Available methadone 10 mg tablet take 1 tablets by mouth every 8 hours. max 3 per day Use dates: -03/16 completed Not Available Not Available Not Available glipizide ER 10 mg tablet, extended release 24 hr TAKE 1 TABLET (10MG) BY MOUTH BEFORE BREAKFAST AND 1 TABLET (10MG) BEFORE DINNER active Not Available Not Available No t Available meloxicam 15 mg tablet TAKE ONE TABLET BY MOUTH ONE TIME DAILY active Not Available Not Available No t Available prednisone 20 mg tablet TAKE TWO TABLETS BY MOUTH DAILY WITH FOOD 03/16 completed Not Available Not Available Not Available glipizide ER 5 mg tablet, extended release 24 hr TAKE 1 TABLET BY MOUTH BEFORE BREAKFAST AND 2 TABLETS BEFORE DINNER. 06/22 completed Not Available Not Available Not Available Accu-Chek Softclix Lancets USE TO TEST BLOOD SUGAR TWICE DAILY active Not Available Not Available No t Available pantoprazol e 20 mg tablet,gerard yed release TAKE ONE TABLET BY MOUTH ONE TIME DAILY active Not Available Not Available No t Available fentanyl 100 mcg/hr transdermal patch Apply 1 Patch on dry, clean, hairless skin every 48 hours. Use dates: -03/16 completed Not Available Not Available Not Available tamsulosin 0.4 mg capsule Take 2 Capsules (0.8 mg) by mouth once daily after a meal. active Not Available Not Available No t Available metformin 1,000 mg tablet Take 1 Tablet (1,000 mg) by mouth two times daily with meals. active Not Available Not Available No t Available furosemide 20 mg tablet TAKE ONE TABLET BY MOUTH TWICE DAILY active Not Available Not Available No t Available metoprolol succinate ER 25 mg tablet,exte nded release 24 hr Take 1 Tablet (25 mg) by mouth once daily. active Not Available Not Available No t Available fentanyl 25 mcg/hr transdermal patch Apply 1 Patch on dry, clean, hairless skin every 48 hours. Use dates: - 022 03/16 completed Not Available Not Available Not Available levofloxaci n 500 mg tablet TAKE ONE TABLET BY MOUTH ONE TIME DAILY 03/16 completed Not Available Not Available Not Available propranolol 20 mg tablet TAKE ONE TABLET BY MOUTH TWICE DAILY NEEDED FOR TREMOR. active Not Available Not Available No t Available fentanyl 75 mcg/hr transdermal patch Apply 1 Patch on dry, clean, hairless skin every 48 hours. USE DATES: -03/16 completed Not Available Not Available Not Available fentanyl 12 mcg/hr transdermal patch Apply 1 Patch on dry, clean, hairless skin every 48 hours. Use dates: - 021 03/16 completed Not Available Not Available Not Available Accu-Chek Guide test strips USE TO TEST BLOOD SUGAR TWICE DAILY active Not Available Not Available No t Available Accu-Chek Guide Glucose Meter USE TO TEST BLOOD SUGAR active Not Available Not Available No t Available FreeStyle Jody 14 Day Sensor kit To be used to read blood sugars per manufactu rer's direction s. active Not Available Not Available No t Available FreeStyle Jody 2 [place] To be used to read blood sugars per manufactu rer's direction s. active Not Available Not Available No t Available Vitals Date Recorded Body height Body mass index (BMI) Body weight Provider Name and Address Organization Details Last Updated DateTime 03/16/2022 172.72 cm 25.1 kg/m2 03387.74 g Chong Rivera MD [address] [place] [address],[address] [address] [place] [address] Urolog 03/16/2022 14:06:09 Date Recorded Body height Body mass index (BMI) Body weight Provider Name and Address Organization Details Last Updated DateTime 04/20/2022 172.72 cm 25.1 kg/m2 87791.74 g Chong Rivera MD [address] [place] [address],[address] [place] [address] Urolog 04/20/2022 12:11:31 Date Recorded Body height Body mass index (BMI) Body weight Provider Name and Address Organization Details Last Updated DateTime 06/22/2022 172.72 cm 25.1 kg/m2 27364.74 g Blanca Bergeron [facility] 06/22/2022 11:04:26 Social History Question Answer Notes LastModified by Organizat ion Details LastModified Time Tobacco Smoking Status Former Smoker Chong Rivera MD [address] [place] [address],[address], [address] [place] [address] Urology 03/16/2022 14:13:05 What Is Your Level Of Alcohol Consumption? None Information not available 03/16/2022 What Is Your Level Of Caffeine Consumption? Moderate Information not available 03/16/2022 Are You Currently Employed? No Information not available 03/16/2022 When Did You Quit Smoking? 16+yearssince lastcigarette Information not available 03/16/2022 Recreational Drug Use No Information not available 03/16/2022 What Was The Date Of Your Most Recent Tobacco Screening? 06/22/2022 [email or web address] Information not available 06/22/2022 What Is Your Relationship Status? Information not available 03/16/2022 Do You Use Any Illicit Or Recreational Drugs? No Information not available 03/16/2022 Has Tobacco Cessation Counseling Been Provided? No Information not available 03/16/2022 How Many Years Have You Smoked Tobacco? 30 Information not available 03/16/2022 Do You Or Have You Ever Used Any Other Forms Of Tobacco Or Nicotine? No Information not available 03/16/2022 Sex: Unknown Functional Status None recorded. Mental Status None recorded. Family History Relationship Description Onset Age of this Age Resolved Age Notes Mother Family history of br east cancer Mother Family history of ca rdiac disorder Father Family history of ca rdiac disorder Medical History Condition Response High Blood Pressure Y Diabetes Y High Cholesterol Y Past Encounters Encounter ID Performer Location Encounter Start Date Encounter Closed Date Diagnosis/Indication Diagnosis SNOMED-CT Code [id number] Chong Rivera MD [facility] [address] [place] [address] 03/16/2022 13:40:21 03/21/2022 10:42:06 Pain in testicle 52487436 Lower urin sam tract symptoms due to benign prostatic hypertrophy [id number] Blanca Dasa [facility] [address] [place] [address] 04/20/2022 11:54:00 04/25/2022 11:12:23 Pain in testicle 16596177 Lower urin sam tract symptoms due to benign prostatic hypertrophy [id number] Right lowe r quadrant pain 014440438 [id number] Chong Rivera MD [facility] [address] [place] [address] 06/22/2022 11:03:39 06/29/2022 03:53:00 Pain in testicle 76321238 Right lowe r quadrant pain 887491396 Lower urin sam tract symptoms due to benign prostatic hypertrophy 29096780967357 Health Concerns Section Related Observation LastModified by Organization Detai ls LastModified Time None Recorded Concern Status LastModified by Organization Details LastModified Time None Recorded Advance Directives Directive None Recorded Payers Encounter Date Sequence Insurance Name Policy Number Policy Monzon Covered Member ID Monzon Member ID Guarantor Name 03/16/2022 1 [place] [facility] Casey Mcintosh [id number] Casey Mcintosh 03/16/2022 2 [facility] [id number] Casey Mcintosh [id number] Casey Mcintosh 04/20/2022 1 [place] [facility] Casey Mcintosh [id number] Casey Michellem 04/20/2022 2 [facility] [id number] Casey Mcintosh [id number] Casey Michellem 06/22/2022 1 [place] [facility] Casey Mcintosh [id number] Casey Michellem 06/22/2022 2 [facility] [id number] Casey Mcintosh [id number] Casey Mcintosh Notes Date Note Type Note Provider Name and Address Organization Details Recorded Time 03/16/2022 text/html HPI Notes: 61 yo male with H/O low testosterone, ED, and BPH - PMHX significant for HTN, HLD, DM (type 2), and seizures. He used Testosterone 200 mg IM q3 weeks and Edex 20 mcg injections in the past. He is on Flomax 0.8 mg daily. 03/16/22 - He presents for evaluation of Right [...] a slow stream - denies urgency or dysuria. - UA - no blood - no LE PSA - 0.26 (08/10/15) - 0.29 (04/08/16) - 0.36 (11/18/16) - 0.30 (01/08/18) - 0.27 (12/10/18) - 0.22 (01/21/20) - 0.18 (02/03/21) Testosterone - 504 ng (08/10/15) - 687 (04/08/16) - Free - 22.0 - 563 (11/18/16) - Free - 15.8 - 889 (01/08/18) - Free - 29.3 - 1770 (08/17/18) - Free - 83.3 - 173 (01/21/20) Hgb - 11.1 (08/10/15) - 12.0 (04/08/16) -12.2 (11/18/16) - 10.6 (01/08/18) - 12.7 (12/10/18) Testicular U/S (12/21/21) - normal - no testicular masses, varicocele, or hydrocele CT scan (12/20/21) - no stones, renal masses, or hydronephrosis Chong Rivera MD [address] [place] [address],[address], [address], [facility] 03/16/2022 19:07:53 04/20/2022 text/html HPI Notes: 61 yo male with H/O low testosterone, ED, and BPH - PMHX significant for HTN, HLD, DM (type 2), and seizures. He used Testosterone 200 mg IM q3 weeks and Edex 20 mcg injections in the past. He is on Flomax 0.8 mg daily. 03/16/22 - He presents for evaluation of Right [...] a slow stream - denies urgency or dysuria. 04/20/22 - He presents for follow-up on Right testicle pain. He reports Meloxicam caused significant stomach issues / pain (stopped after 1 dose). He report RLQ pain for the past 1-2 weeks - worse when he lifts his Right leg. His Right testicle pain is a dull ache. He denies redness or swelling. He reports occasional urgency. - UA - no blood - no LE - PVR = 8 mL PSA - 0.26 (08/10/15) - 0.29 (04/08/16) - 0.36 (11/18/16) - 0.30 (01/08/18) - 0.27 (12/10/18) - 0.22 (01/21/20) - 0.18 (02/03/21) Testosterone - 504 ng (08/10/15) - 687 (04/08/16) - Free - 22.0 - 563 (11/18/16) - Free - 15.8 - 889 (01/08/18) - Free - 29.3 - 1770 (08/17/18) - Free - 83.3 - 173 (01/21/20) Hgb - 11.1 (08/10/15) - 12.0 (04/08/16) -12.2 (11/18/16) - 10.6 (01/08/18) - 12.7 (12/10/18) Testicular U/S (12/21/21) - normal - no testicular masses, varicocele, or hydrocele CT scan (12/20/21) - no stones, renal masses, or hydronephrosis Chong Rivera MD [address] [place] [address],[address], [place], [address], [facility] 04/24/2022 22:54:56 06/22/2022 text/html HPI Notes: 62 yo male with H/O low testosterone, ED, and BPH - PMHX significant for HTN, HLD, DM (type 2), and seizures. He used Testosterone 200 mg IM q3 weeks and Edex 20 mcg injections in the past. He is on Flomax 0.8 mg daily. 03/16/22 - He presents for evaluation of Right [...] a slow stream - denies urgency or dysuria. 04/20/22 - He presents for follow-up on Right testicle pain. He reports Meloxicam caused significant stomach issues / pain (stopped after 1 dose). He report RLQ pain for the past 1-2 weeks - worse when he lifts his Right leg. His Right testicle pain is a dull ache. He denies redness or swelling. He reports occasional urgency. 06/22/22 - He presents for follow-up on Right testicle pain. He reports no change in his symptoms - still has Right testicular pain (dull ache - constant) and RLQ pain. He denies trouble with urination - no urgency or dysuria. PSA - 0.26 (08/10/15) - 0.29 (04/08/16) - 0.36 (11/18/16) - 0.30 (01/08/18) - 0.27 (12/10/18) - 0.22 (01/21/20) - 0.18 (02/03/21) Testosterone - 504 ng (08/10/15) - 687 (04/08/16) - Free - 22.0 - 563 (11/18/16) - Free - 15.8 - 889 (01/08/18) - Free - 29.3 - 1770 (08/17/18) - Free - 83.3 - 173 (01/21/20) Hgb - 11.1 (08/10/15) - 12.0 (04/08/16) -12.2 (11/18/16) - 10.6 (01/08/18) - 12.7 (12/10/18) Testicular U/S (12/21/21) - normal - no testicular masses, varicocele, or hydrocele CT scan (12/20/21) - no stones, renal masses, or hydronephrosis CT scan (04/28/22) - no stones or hydronephrosis - increased stool in Right colon (constipation?) This visit was conducted by telephone due to the COVID-19 crisis. Prior to conducting our telephone visit, the patient was apprised of the risks, benefits and alternatives to telephone visits including but not limited to poor audio quality, interrupted visits due to technological limitations, delays in medical evaluation and treatment due to deficiencies or failures of equipment, failure of security protocols resulting in a breach of privacy of personal medical information and a lack of access to complete medical records resulting in not fully informed decisions. Also, because of the COVID-19 pandemic, it was not possible for the patient to sign the privacy regulations, HIPAA release and assignment of benefits forms. The patient was given the opportunity to ask questions about these policies and gave verbal acknowledgement and approval of these policies as well as to hold this meeting by telephone. Lastly, the patient agreed to allowing their medication history to be pulled from a national pharmacy database to facilitate and coordinate their care. Chong Rivera MD [address] [place] [address],[address], [place], [address], [facility] 06/22/2022 13:15:05
--- OUTSIDE RECORDS SUMMARY | 2024-01-22 06:05 | XMS_ITS | Clinical Summary ---
Author Organization [facility] Address [place], [place] [address] Care Team Providers Care Manager Technical Training Name Role Phone DarleenBeckyaakash REYES Primary Care Provider [phone] Allergies Active Allergy Reactions Criticality Noted Date Comments Bupropion Anxiety,Agitation,Di apho resis 01/20/2010 Citalopram *Unknown 01/27/2012 Urine retention / anger issues / crabby Omeprazole GI Upset 11/21/2011 Does not tolerate Generic form-toleratesprilosec Gastric reflux worsens with this. Pregabalin Syncope 12/11/2009 Lyrica Medications Medication Sig Dispensed Refills Start Date End Date Status ASPIRIN 325 MG TAB One tablet daily 0 12/22/2005 Active calcium carbonate-vitamin D3, 600 mg-400 unit, (CALCIUM 600 + D) 600 mg(1,500mg) -400 unit tablet Take 1 tablet by mouth 2 times daily with meals. 0 05/06/2014 Active B-D 3CC LUER-KRISTAL SYR 75CZ3-8/2 3 mL 22 x 1 1/2 syrgIndications:L ow testosterone Use as directed. 50 Each 3 12/05/2017 Active lamoTRIgine (LAMICTAL) 150 mg tablet Take 150 mg by mouth 2 times daily. 03/23/2020 Active FreeStyle Jody 14 Day ReaderIndications :Type 2 diabetes mellitus without complication, without long-term current use of insulin (HC) To be used to read blood sugars per precast concrete products installer's directions. 1 Each 03/11/2022 Active continuous glucose monitor SENSOR KIT (FreeStyle Jody 14 Day Sensor) FreeStyle Jody 14 Day Sensor kit To be used to read blood sugars per precast concrete products installer's directions. Active lancets (Accu-Chek Softclix Lancets) Accu-Chek Softclix Lancets USE TO TEST BLOOD SUGAR TWICE DAILY Active artificial saliva (NADYA-STIR, SALIVA SUBSTITUTE) sprp sprayIndications: Dry mouth Take 2 Sprays by mouth every 2 hours if needed for Dry Mouth. 120 mL 1 10/11/2022 Active propranoloL (INDERAL) 20 mg tablet TAKE ONE TABLET BY MOUTH TWICE DAILY NEEDED FOR TREMOR. 09/28/2022 Active vitamin E, dl,tocopheryl acet, (Vitamin E, DL, Acetate,) 400 unit capsule Take 1 Capsule (400 units) by mouth once daily. 07/07/2023 Active empagliflozin (JARDIANCE) 25 mg tabletIndications :Type 2 diabetes mellitus with diabetic neuropathy, unspecified whether computer terminal operator insulin use (HC) Take 1 Tablet (25 mg) by mouth once daily. 90 Tablet 3 10/17/2023 Active glipiZIDE extended-release (GLUCOTROL XL) 10 mg Extended-Release tabletIndications :Type 2 diabetes mellitus without complication, without long-term current use of insulin (HC) TAKE ONE TABLET BY MOUTH TWICE DAILY BEFORE MEALS 180 Tablet 10/26/2023 Active metFORMIN (GLUCOPHAGE) 500 mg tabletIndications :Type 2 diabetes mellitus without complication, without long-term current use of insulin (HC) Take 2 Tablets (1,000 mg) by mouth two times daily with meals. 360 Tablet 10/26/2023 Active oxyCODONE (ROXICODONE) 5 mg immediate release tabletIndications :DDD (degenerative disc disease), lumbar,Pain in thoracic spine,Cervical spondylosis with myelopathy Take 1 Tablet (5 mg) by mouth every 6 hours if needed for Pain. 20 Tablet 11/06/2023 Active atorvastatin (LIPITOR) 80 mg tabletIndications :Hyperlipidemia with target LDL less than 100 TAKE ONE TABLET BY MOUTH ONE TIME DAILY 90 Tablet 3 11/20/2023 Active pantoprazole (PROTONIX) 20 mg tabletIndications :Gastroesophageal reflux disease, unspecified whether esophagitis present TAKE ONE TABLET BY MOUTH ONE TIME DAILY 90 Tablet 3 11/20/2023 Active furosemide (LASIX) 20 mg tabletIndications :Edema, unspecified type TAKE ONE TABLET BY MOUTH TWICE DAILY 180 Tablet 11/20/2023 Active cyclobenzaprine (FLEXERIL) 10 mg tabletIndications :Abdominal pain, RLQ (right lower quadrant) TAKE ONE TABLET BY MOUTH THREE TIMES DAILY NEEDED FOR MUSCLE SPASM 30 Tablet 01/18/2024 Active tamsulosin (FLOMAX) 0.4 mg capsuleIndication s:Frequency of urination TAKE TWO CAPSULES BY MOUTH DAILY AFTER A MEAL 180 Capsule 2 01/18/2024 Active tamsulosin (FLOMAX) 0.4 mg capsuleIndication s:Frequency of urination Take 2 Capsules (0.8 mg) by mouth once daily after a meal. 180 Capsule 2 03/25/2023 4 Discontinued cyclobenzaprine (FLEXERIL) 10 mg tabletIndications :Abdominal pain, RLQ (right lower quadrant) TAKE ONE TABLET BY MOUTH THREE TIMES DAILY NEEDED FOR MUSCLE SPASM 30 Tablet 12/21/2023 4 Discontinued Active Problems Problem Noted Date Diagnosed Date Right knee pain 09/01/2023 Old complex tear of medial meniscus of right kne e 09/01/2023 Pain of meniscus of right knee 09/01/2023 Type 2 diabetes mellitus wit h diabetic neuropathy, unspecified whether computer terminal operator insulin use 07/07/2023 Granulomatous disease 09/13/2022 Depression, recurrent 09/13/2022 Uncontrolled type 2 diabetes mellitus with hyper glycemia 09/13/2022 VT (ventricular tachycardia) 09/13/2022 Thrombocytopenia 09/13/2022 Controlled substance agreement signed 02/10/2021 Essential hypertension 07/26/2018 Colon polyps 07/28/2017 Overview: His last Colonoscopy was 12/31/2012. Due for next 01/01/2018 DDD (degenerative disc disease), lumbar 03/14/20 16 Myofacial muscle pain 11/05/2015 Gastroesophageal reflux disease 04/14/2015 Cervicothoracic interspinous bursitis 04/11/2014 Sacroiliac dysfunction 10/24/2013 Encounter for long-term (current) use of other m edications 12/21/2011 Overview: Benzodiazepine. Cont sub agreement 12/21/11. Anxiety state, unspecified 12/21/2011 Facet arthropathy, cervical 10/28/2011 Lumbar facet arthropathy 01/26/2011 Hyperlipidemia LDL goal < 100 12/01/2010 Lumbar disc herniation 10/27/2010 Anemia 05/12/2010 Short-term memory loss 12/27/2009 Gynecomastia, male 08/18/2009 Overview: 08/2009 Negative breast ultrasound and mamogram Low testosterone 01/18/2009 Impotence of organic origin 01/12/2009 Benign neoplasm of colon 09/01/2008 Overview: colonoscopy 08/2008 polyp, Colonoscopy in 5 years. Dysthymic disorder 01/16/2008 Irritable bowel syndrome 02/12/2007 Edema 02/12/2007 Unspecified sleep apnea 02/12/2007 Cervical spondylosis with myelopathy 05/08/2006 Other symptoms referable to back 04/17/2006 Myalgia and myositis, unspecified 04/17/2006 Cervicalgia 04/17/2006 Pain in thoracic spine 12/22/2005 Lumbago 10/05/2005 Resolved Problems Problem Noted Date Diagnosed Date Resolved Date Other and unspecified alcoho l dependence, in remission 12/21/2011 09/13/2022 Overview: 1980s Encounters Date Type Department Care Team Description 01/16/2024 Refill [facility] [address] [place] [address] [place], Refill Request (Cyclobenzaprine, Tamsulosin) 12/19/2023 Refill [facility] [address] [place] [address] [place], Refill Request (Cyclobenzaprine) 12/04/2023 5:55 PM CDT Ancillary Procedure [facility] [address] [place] [address] 12/04/2023 5:40 PM CDT Office Visit [facility] [address] [place] [address] Fany Elizondo, KEN Chest Injury (Lawnmower seat jammed into left side ribcage a week ago. ) 12/04/2023 Travel 11/18/2023 Refill [facility] [address] [facility] [address] [place] DO Refill Request (Cyclobenzaprine, Atorvastatin, Pantoprazole, Furosemide) 11/07/2023 1:00 PM CDT Ancillary Procedure [facility] [address] [facility] [address] 11/06/2023 2:55 PM CDT Office Visit [facility] [address] [facility] [address] [place] DO Testicle Pain (X2-3 years - not getting worse - into the groin - RIGHT side ) 11/06/2023 Travel 10/25/2023 Refill [facility] [address] [facility] [address] [place] DO Refill Request (Glipizide Extended-release, Metformin) from Last 3 Months Immunizations Name Administration Dates Next Due AMB Influenza, IIV3 (Age >=3 years)(Flu Clinic Only) 04/27/2011 Hepatitis B (Adult) 07/23/2013,01/16/2013,2012 Influenza, IIV3 (Age 6-35 mos) 04/27/2011 Influenza, IIV3 (Age >=3 years) 03/11/20 13,03/19/2012,05/12/2010,2008,06/11/2008,04/20/2007,04/10/2006,1 Influenza, IIV4 04/17/2019,04/04/2016,04/08/2014 Td, Preservative Free (age > = 7 Years) 01/24/2005 Tdap 04/17/2019,02/12/2007 Zoster (Shingrix-RZV, recombinant) 04/17/2019 Family History Medical History Relation Name Comments Heart Disease Brother 1 [place] at 49 Alcohol/Drug Brother 2 Heart Disease Father [place] at 37 Cancer-breast Mother Relation Name Status Comments Brother 1 Brother 2 Father Mother Social History Tobacco Use Types Packs/Day Years Used Date Smoking Tobacco: Former Cigarettes 0.5 28 0 08/08/1992 - 08/08/2020 Smokeless Tobacco: Former Chew Tobacco Cessation:Counseling Given: Yes Comments:quit Smoking in 1997-smoking 8-9 cigs a day-a tin q 6 days Alcohol Use Standard Drinks/Week Comments No 0 (1 standard drink = 0.6 oz pure alcohol) CD treatment for EtOH dep; 1987 PHQ-2 Answer Date Recorded PHQ-2 TOTAL SCORE 3 07/07/2023 Social Connections Answer Date Recorded Frequency of Communication with Friends and Fami ly 0 11/06/2023 Financial Resource Strain Answer Date R ecorded Difficulty of Paying Living Expenses 3 11/06/2023 Difficulty of Paying Living Expenses Not on file 11/06/2023 Food Insecurity Answer Date Recorded Worried About Running Out of Food in the Last Ye ar 1 11/06/2023 Transportation Needs Answer Date Record ed Lack of Transportation (Medical) 1 11/06/2023 Housing Stability Answer Date Recorded Unable to Pay for Housing in the Last Year 1 11/06/2023 Sex and Gender Information Value Date Recorded Sex Assigned at Not on file Gender Identity Not on file Sexual Orientation Not on file Obstetrics History Last Filed Vital Signs Vital Sign Reading Time Taken Comments Blood Pressure 111/76 12/04/2023 5:46 PM CDT Pulse 74 12/04/2023 5:46 PM CDT Temperature 36.8 ??C (98.3 ??F) 12/04/2023 5:46 PM CD T Respiratory Rate 20 12/04/2023 5:46 PM CDT Oxygen Saturation 96% 12/04/2023 5:46 PM CDT Inhaled Oxygen Concentration - - Weight 75.3 kg (166 lb) 12/04/2023 5:46 PM CDT Height 172.7 cm (5' 8) 07/07/2023 1:32 PM STRATEGIC CONSULTANT Body Mass Index 25.24 07/07/2023 1:32 PM STRATEGIC CONSULTANT Plan of Treatment Upcoming Encounters Date Type Department Care Team (Late st Contact Info) Description 02/07/2024 8:10 AM CDT Procedure Only [facility] [address] [place] [address] Khanh Pena MD [address] [place] [address] Health Maintenance Due Date Last Done Comments Pneumococcal series for age 65+ (1 of 2 - PCV) 1964 Fecal testing sDNA-FIT (Cologuard) for age 45-75 2003 Zoster (shingles) series for age 50+ (2 of 2) 2019 04/17/2019 COVID-19 vaccine series (24 season) 2023 AAA screening age 65-74 2023 04/28/20, 12/20/2021, 05/06/2014, Additional history exists Influenza for age 65+ 03/03/2024 04/17/2019 , 04/04/2016, 04/08/2014, Additional history exists BMI (ht and wt on same day) for age 18+ 07/07/2024 07/07/2023, 09/13/2022, 02/28/2022, Additional history exists Depression screening for age 12+ 07/07/2024 07/07/2023, 02/28/2022, 02/28/2022, Additional history exists Medicare Wellness for age 65+ 07/07/2024 07/07/2023 Lipids for age 45-75 05/10/2027 05/10/2022, 02/03/2021, 01/21/2020, Additional history exists Tetanus booster 04/17/2029 04/17/2019, 01/31, 01/24/2005 HIV for age 15-65 Completed 12/27/2009 Fecal testing non-DNA (FIT,FOBT,iFOBT) for age 45-75 Discontinued 12/22/2011 Hepatitis C screening for ag e 18-79 Completed 09/19/2012 Tdap Completed 04/17/2019, 02/12/2007 Medical Devices Implanted Type Area Director Of Business Operations Device Identifier Shelf Expiration Date Model / Serial / Lot Screw 4.0x15mm - [id number] Implanted:Qty: 4 on 09/03/2008 at [facility] Spine Implants Spine SOFAMDELILAH BOGGS [id number]# / / [id number] nerstone Sr [id number] [[id number]] Implanted:Qty: 1 on 09/03/2008 at [facility] Explanted:at [facility] (Quantity not on file) Spine [employer] 12/19/2011 [id number]# / [id number] / [id number] Progenix Dbm 1cc [[id number]][ Implanted:Qty: 1 on 09/03/2008 at [facility] Explanted:at [facility] (Quantity not on file) Spine Medtronic 04/29/2010 [id number]# / [id number] / Plate Cerv Ant 30mm Atlantisvision 976-130 - [id number] Implanted:Qty: 1 on 09/03/2008 at [facility] Spine SOFAMOR DANEK 976-130# / / Procedures Procedure Name Priority Date/Time Associated Diagnosis Comments XR RIBS LEFT AND PA CHEST MINIMUM 3 VIEWS STAT 12/04/2023 5:53 PM CDT Rib injury US SCROTUM WITH DUPLEX MIKA 11/07/2023 1:09 PM CDT Pain in right testicle URINALYSIS MICROSCOPIC Routine 11/06/2023 3:32 PM CDT Pain in right testicle UA W/ SEDIMENT EXAM REFLEXED PER CRITERIA Routine 11/06/2023 3:32 PM CDT Pain in right testicle URINE ALBUMIN TO CREATININE RATIO, RANDOM Routine 11/06/2023 3:32 PM CDT Type 2 diabetes mellitus with diabetic neuropathy, unspecified whether usp insulin use (HC) LIPID PANEL W REFLEX MEASURED LDL Routine 05/10/2022 3:24 PM STRATEGIC CONSULTANT Lipid screening CT ABDOMEN PELVIS W Routine 04/28/2022 1 2:24 PM CDT Right lower quadrant pain ANTI HCV Routine 09/19/2012 2:48 PM CDT Elevated LFTs OCCULT BLOOD IFOBT STOOL Routine 12/22/2011 6:21 PM CDT Rectal bleeding ANTI HIV 1/2 Add On 12/27/2009 8:30 PM CDT from Last 3 Months or Most Recently Relevant to Health Maintenance Results * XR RIBS LEFT AND PA CHEST MINIMUM 3 VIEWS (12/04/2023 5:53 PM CDT) Anatomical Region Laterality Modality RIBS, RIBS L, CHEST Computed Rad iography 12/04/2023 6:45 PM CDT Impressions 12/04/2023 6:45 PM CDT No consolidation. No discrete acute displaced osseous process. Dictated by Lv Blanca MD @ 12/04/2023 6:45:10 PM (Electronically Signed) Narrative 12/04/2023 6:45 PM CDT For Patients: ??As a result of the Cures Act, medical imaging exams and procedure reports are released immediately into your electronic medical record. ??You may view this report before your referring provider. ??If you have questions, please contact your health care provider. INDICATION: Rib injury. TECHNIQUE: Chest 3 views. COMPARISON: CT May 2022. FINDINGS: Lungs: Normal lung volume. No consolidation. Calcified granulomas. Pleura: No pleural effusion or pneumothorax. Heart and Mediastinum: Normal heart size. Atherosclerotic aorta. Bones: ACDF. No discrete acute displaced osseous process. Procedure Note Lv Blanca MD - 12/04/2023 For Patients: As a result of the Cures Act, medical imagingexams and procedure reports are released immediately into your electronicmedical record. You may view this report before your referring provider.If you have questions, please contact your health care provider. INDICATION: Rib injury. TECHNIQUE: Chest 3 views. COMPARISON: CT May 2022. FINDINGS: Lungs: Normal lung volume. No consolidation. Calcified granulomas. Pleura: No pleural effusion or pneumothorax. Heart and Mediastinum: Normal heart size. Atherosclerotic aorta. Bones: ACDF. No discrete acute displaced osseous process. IMPRESSION: No consolidation. No discrete acute displaced osseous process. Dictated by Lv Blanca MD @ 12/04/2023 6:45:10 PM (Electronically Signed) Fany Elizondo NP GENERAL IMAGING * US SCROTUM W DUPLEX (11/07/2023 1:09 PM CDT) Anatomical Region Laterality Modality SCROTUM, TESTES Ultrasound 11/07/2023 1:31 PM CDT Narrative 11/07/2023 1:31 PM CDT For Patients: ??As a result of the Cures Act, medical imaging exams and procedure reports are released immediately into your electronic medical record. ??You may view this report before your referring provider. ??If you have questions, please contact your health care provider. Indication: Testicular pain. Technique: Ultrasound of the scrotum and contents. ??Sonographic mccoy-scale images were obtained with spectral and color Doppler waveform and spectral waveform analysis of the testicles. Comparison: None. Findings: Bother testicles are normal in size and echotexture. ??No masses. ??No suspicious calcifications. ??Normal arterial and venous color Doppler blood flow and spectral waveforms are present in both testicles. ?? Epididymis: Unremarkable bilaterally. ??Normal blood flow. ?? Other: No significant hydrocele. ??No sign of varicocele. ??Scrotal wall is normal. Impression: Unremarkable ultrasound of the scrotum and contents. No sign of torsion or inflammation. Dictated by Juan Carlos Nagy MD @ 11/07/2023 1:31:36 PM (Electronically Signed) Procedure Note Juan Carlos Nagy MD - 11/07/2023 For Patients: As a result of the Cures Act, medical imagingexams and procedure reports are released immediately into your electronicmedical record. You may view this report before your referring provider.If you have questions, please contact your health care provider. Indication: Testicular pain. Technique: Ultrasound of the scrotum and contents. Sonographic mccoy-scale imageswere obtained with spectral and color Doppler waveform and spectralwaveform analysis of the testicles. Comparison: None. Findings: Bother testicles are normal in size and echotexture. No masses. Nosuspicious calcifications. Normal arterial and venous color Doppler bloodflow and spectral waveforms are present in both testicles. Epididymis: Unremarkable bilaterally. Normal blood flow. Other: No significant hydrocele. No sign of varicocele. Scrotal wall isnormal. Impression: Unremarkable ultrasound of the scrotum and contents. No sign of torsion orinflammation. Dictated by Juan Carlos Nagy MD @ 11/07/2023 1:31:36 PM (Electronically Signed) [place] DO US * URINALYSIS MICROSCOPIC (11/06/2023 3:32 PM CDT) RBC None Seen 0-2, None Seen /HPF 11/06/2023 3:42 PM CDT [facility] WBC None Seen 0-2, 3-5, None Seen /HPF 11/06/2023 3:42 PM CDT [facility] BACTERIA None Seen None Seen, Rare, Few Bacteria/ HPF 11/06/2023 3:42 PM CDT [facility] EPITHELIAL CELLS None Seen None Seen, Few Epi/HPF 11/06/2023 3:42 PM CDT [facility] Urine URINE SPECIMEN / Unknown Non-Blood / Unknown 11/06/2023 3:32 PM CDT 11/06/2023 3:33 PM CDT [place] DO URINE [facility] [address] [place] [address], * URINE ALBUMIN TO CREATININE RATIO, RANDOM (11/06/2023 3:32 PM CDT) ALB RAND URINE <12.0 mg/L 11/06/2023 10:51 PM CDT [facility] CREATININE,URINE 0.90 g/L 11/06/19 10:51 PM CDT [facility] ALBUMIN TO CREATININE RATIO,RAND UR 11/06/2023 10:51 PM CDT [facility] Comment:Urine Albumin below measurement range, unable to calculate. Urine URINE SPECIMEN / Unknown Non-Blood / Unknown 11/06/2023 3:32 PM CDT 11/06/2023 3:33 PM CDT Narrative [facility] - 11/06/2023 10:51 PM CDT If Albumin to Creatinine Ratio is elevated, consider the following: ? Elevations seen with incipient nephropathy associated ?? with diabetes mellitus or hypertension. Stress, exercise,hematuria, ?? and urinary tract infection may also produce elevated results. If clinically indicated, confirm with ?24 Hour Albumin to Creatinine Ratio. ?? [place] DO URINE [facility] [address] [place] [address], [place] * (ABNORMAL) UA W/ SEDIMENT EXAM REFLEXED PER CRITERIA (11/06/2023 3:32 PM CDT) COLOR Yellow Yellow Color 11/06/2023 3:42 PM CDT [facility] CLARITY Clear Clear Clarity 11/06/2023 3:42 PM CDT [facility] SPECIFIC GRAVITY,URINE 1.010 1.010, 1.015, 1.020, 1.025 11/06/2023 3:42 PM CDT [facility] PH,URINE 5.5 6.0, 7.0, 8.0, 5.5, 6.5, 7.5, 8.5 11/06/2023 3:42 PM CDT [facility] UROBILINOGEN, QUALITATIVE Normal Normal EU/dl 11/06/2023 3:42 PM CDT [facility] PROTEIN, URINE Negative Negative mg/dL 11/06/2023 3:42 PM CDT [facility] GLUCOSE, URINE >=1000(A) Negative mg/dL 11/06/2023 3:42 PM CDT [facility] KETONES,URINE Trace(A) Negative mg/dL 11/06/2023 3:42 PM CDT [facility] BILIRUBIN,URI NE Negative Negative 11/06/2023 3:42 PM CDT [facility] OCCULT BLOOD,URINE Negative Negative 11/06/2023 3:42 PM CDT [facility] NITRITE Negative Negative 11/06/2023 3:42 PM CDT [facility] LEUKOCYTE ESTERASE Negative Negative 11/06/2023 3:42 PM CDT [facility] Urine URINE SPECIMEN / Unknown Non-Blood / Unknown 11/06/2023 3:32 PM CDT 11/06/2023 3:33 PM CDT Adeaakash Srinivasq DO URINE [facility] [address] [place] [address], [place] [phone] * LIPID PANEL W REFLEX MEASURED LDL (05/10/2022 3:24 PM STRATEGIC CONSULTANT) CHOLESTEROL,TOTAL 159 100 - 199 mg/dL 05/11/2022 6:19 PM STRATEGIC CONSULTANT [facility] TRIGLYCERIDES 70 <150 mg/dL 05/11/2022 6:19 PM STRATEGIC CONSULTANT [facility] HDL CHOLESTEROL 65 >40 mg/dL 6:19 PM STRATEGIC CONSULTANT [facility] NON-HDL CHOLESTEROL 94 <145 mg/dl 05/11/2022 6:19 PM STRATEGIC CONSULTANT [facility] CHOL/HDL RATIO 2.45 <4.50 05/11/2022 6:19 PM STRATEGIC CONSULTANT [facility] LDL CHOLESTEROL 80 <=130 mg/dL 05/11/2022 6:19 PM STRATEGIC CONSULTANT [facility] VLDL CHOLESTEROL 14 <=30 mg/dL 05/11/2022 6:19 PM STRATEGIC CONSULTANT [facility] PROVIDER ORDERED STATUS RANDOM 05/11/2022 6:19 PM STRATEGIC CONSULTANT [facility] Blood BLOOD SPECIMEN / Unknown Venipuncture / Unknown 05/10/2022 3:24 PM STRATEGIC CONSULTANT 05/10/2022 3:24 PM STRATEGIC CONSULTANT [place] DO CHEMISTRY [facility] [address] [place] [address], [place] * CT ABDOMEN PELVIS W (04/28/2022 12:24 PM CDT) Anatomical Region Laterality Modality Abdomen, Pelvis, AORTA, LIVER, SPLEEN Computed Tomography 04/28/2022 2:48 PM CDT Narrative 04/28/2022 2:48 PM CDT For Patients: ??As a result of the Cures Act, medical imaging exams and procedure reports are released immediately into your electronic medical record. ??You may view this report before your referring provider. ??If you have questions, please contact your health care provider. Indication: Right lower quadrant pain Technique: Postcontrast CT abdomen and pelvis. Oral water. 100 cc Omnipaque 350 intravenous contrast. Please note that all CT scans at this facility use dose modulation, iterative reconstruction, and/or weight-based dosing when appropriate to reduce radiation dose to as low as reasonably achievable. Comparison: 12/20/2021 Findings: Lung bases are clear. No pleural effusion. No infiltrate. No intrahepatic mass. Calcified granuloma within the periphery of the liver. Numerous calcified splenic granulomas. Adrenal glands are normal. Normal kidneys. Atherosclerotic disease in the aorta. Mild atrophy of the pancreas. Gallbladder is absent. No retroperitoneal or mesenteric adenopathy. Bladder is normal. Increased stool within the colon particularly on the right. No small bowel obstruction. Normal appendix. Unremarkable appearance of the ileum without evidence of inflammatory bowel disease. Incomplete distention of the jejunum. No pelvic or inguinal adenopathy. No fracture. Degenerative disc disease L4-5 and L5-S1. Impression: Increased stool within the colon particularly on the right, likely representing constipation. No mechanical bowel obstruction or inflammation. Normal appendix. Sequela of granulomatous disease. Extensive atherosclerotic disease without aneurysm. No evidence of ischemia. Please note that all CT scans at this facility use dose modulation, iterative reconstruction, and/or weight-based dosing when appropriate to reduce radiation dose to as low as reasonably achievable. Dictated by Lv Slaughter MD @ Apr 28 2022 ??2:48PM (Electronically Signed) ?? Procedure Note Lv Slaughter MD - 04/28/2022 For Patients: As a result of the Cures Act, medical imagingexams and procedure reports are released immediately into your electronicmedical record. You may view this report before your referring provider.If you have questions, please contact your health care provider. Indication: Right lower quadrant pain Technique: Postcontrast CT abdomen and pelvis. Oral water. 100 cc Omnipaque 350intravenous contrast. Please note that all CT scans at this facility use dose modulation,iterative reconstruction, and/or weight-based dosing when appropriate toreduce radiation dose to as low as reasonably achievable. Comparison: 12/20/2021 Findings: Lung bases are clear. No pleural effusion. No infiltrate. No intrahepaticmass. Calcified granuloma within the periphery of the liver. Numerouscalcified splenic granulomas. Adrenal glands are normal. Normal kidneys.Atherosclerotic disease in the aorta. Mild atrophy of the pancreas.Gallbladder is absent. No retroperitoneal or mesenteric adenopathy.Bladder is normal. Increased stool within the colon particularly on theright. No small bowel obstruction. Normal appendix. Unremarkableappearance of the ileum without evidence of inflammatory bowel disease.Incomplete distention of the jejunum. No pelvic or inguinal adenopathy. Nofracture. Degenerative disc disease L4-5 and L5-S1. Impression: Increased stool within the colon particularly on the right, likelyrepresenting constipation. No mechanical bowel obstruction orinflammation. Normal appendix. Sequela of granulomatous disease. Extensive atherosclerotic disease without aneurysm. No evidence ofischemia. Please note that all CT scans at this facility use dose modulation,iterative reconstruction, and/or weight-based dosing when appropriate toreduce radiation dose to as low as reasonably achievable. Dictated by Lv Slaughter MD @ Apr 28 2022 2:48PM (Electronically Signed) Chong Rivera MD CT * ANTI HCV (09/19/2012 2:48 PM CDT) [facility] ANTI HCV Non-reacti ve [facility] Blood specimen (specimen) BLOOD SPECIMEN / Unknown 09/19/2012 2:48 PM CDT 09/19/2012 2:44 PM CDT Sanjeev Barrios MD [facility] INTERNAL ZIP [id number] [place] [address] * OCCULT BLOOD IFOBT STOOL (12/22/2011 6:21 PM CDT) [facility] STOOL BLOOD ,IFOBT Negative (Negative) [facility] Stool specimen (specimen) STOOL SPECIMEN / Unknown 12/22/2011 6:21 PM CDT 12/22/2011 6:19 PM CDT Panfilo Matias MD LABORATORY [facility] [address] [place] [address] * ANTI HIV 1/2 (12/27/2009 8:30 PM CDT) ANTI HIV 1/2 Non-reacti ve [facility] Blood specimen (specimen) BLOOD SPECIMEN / Unknown 12/27/2009 8:30 PM CDT 12/27/2009 8:11 PM CDT Maximo Cardoso MD [facility] INTERNAL ZIP [id number] [place] [id number] from Last 3 Months or Most Recently Relevant to Health Maintenance Advance Directives * Full Code (Latest Code Status on File) Date Activated Date Inactivated Comments 12/27/2009 9:24 PM 12/31/2009 9:56 PM * Full Code Date Activated Date Inactivated Comments 09/03/2008 5:15 AM 09/04/2008 6:56 PM Care Teams Manager Technical Training Relationship Specialty Start Date End Date Graham Morejon DO [address] [place] [address] PCP - General Family Practice 02/23/22
[2024-01-22] MEDS: BUPIVACAINE 0.5% 30 ML INJECTION (06:55)
[2024-01-22] MEDS: ETHYL CHLORIDE 1 APPLICATION 1 APPLIC TOPICAL (07:01)
--- NOTE | 2024-01-22 07:09 | SUR.PREOP ---
SAME DAY SURGERY LOCAL INJECTION SITE VERIFICATION WAS PERFORMED BY SURGEON/PA AND PATIENT PRIOR TO LOCAL ANESTHETIC BEING INJECTED TO OPERATIVE SITE.
[2024-01-22] MEDS: NEOMYCIN/BACITRACIN/POLYMYXIN B 1 APPLIC TOPICAL (07:30)
--- NOTE | 2024-01-22 07:55 | P.ORPRC_ITS ---
Procedure Note Date of procedure: 01/22/24 Procedure: PREOPERATIVE DIAGNOSIS: 1. Right long finger flexor tenosynovitis - trigger finger POSTOPERATIVE DIAGNOSIS: 1. Right long finger flexor tenosynovitis - trigger finger PROCEDURE: 1. Right long finger flexor tendon sheath open release (A1 ousmane) SURGEON: Wesly West MD. RECEPTION MANAGER: KAMINI Bello ANESTHESIA: Local anesthetic 6 mL via 50:50 mixture of 1% Lidocaine with epi and 0.5% marcaine plain EBL: 2mL IMPLANTS: None TOURNIQUET: None COMPLICATIONS: None evident INDICATIONS: The patient is a pleasant 63-year-old male who has experienced right long finger catching/triggering for number of months. It has progressively gotten worse. Given the failure of nonoperative management, and how this affects daily life, surgery was recommended. DESCRIPTION OF PROCEDURE: Following a thorough discussion of risks, benefits, and alternatives consent was obtained and the operative digit(s) was marked. The patient was brought to the operating room and placed supine on the operating table. Local anesthesia induction was undertaken in preop holding. No antibiotics were administered as this was planned to be a local case only. Proper time-out was performed identifying proper patient, site, and procedure. The operative extremity was prepped and draped in the appropriate sterile fashion using ChloraPrep. An incision was made on the palmar surface of the hand overlying the MCP joint region of the appropriate digit(s) respecting the palmar creases being cautious not to cross these perpendicularly. Sharp incision through the skin, and blunt dissection through subcutaneous tissue allowing protection of crossing neurologic structures. The A1 ousmane was visualized directly. It was incised sharply with a 15 blade. It was released completely from its distal to proximal extent under direct visualization. The tendon was inspected and found to be moderately striated consistent with some friction. Otherwise, it was intact. The tendon was removed out of the wound, and further inspected. The patient was asked to manually flex and extend the digits and showed no further catching. The catching, which was visualized initially, was no longer evident with repr oduction of a manual fist and relaxation. Closure was performed with 4-O nylon in interrupted fashion. Soft dressings were applied, and the patient was transferred to the recovery room in stable condition. PLAN: 1. Encourage elevation of the operative extremity. 2. Range of motion of the fingers and hand/wrist as tolerated. 3. Ibuprofen/acetaminophen and/or oxycodone as needed for pain control. 4. Follow up with PA visit in 12-16 days for wound check and suture removal.
== END 2024-01-22 07:50 | disposition home or self-care (01) ==
PROVIDERS: PCP Student in an Organized Health Care Education/Training Program; Visit Provider Orthopaedic Surgery Sports Medicine
PROC: (CPT 26055; principal; 2024-01-22 07:15)
DX: M65.331 Trigger finger, right middle finger (principal); M65.841 Other synovitis and tenosynovitis, right hand
CPT/HCPCS: 26055; J0665

== ENCOUNTER 2024-04-17 13:00 | Outpatient (RCR) | payer MEDICARE, BC, SELFPAY ==
--- NOTE | 2024-03-15 15:26 | OT.OPOE ---
OT Outpatient Ortho Eval OT Outpatient Ortho Eval* Start: 03/15/24 07:26 Freq: Status: Active Protocol: Document 03/15/24 10:26 AMB (Rec: 03/15/24 15:23 AMB [id number]) E-signed By Aaliyah North, OTR/L, CLT, [employer] OT OP Ortho Eval Details Complexity Complexity Low Insurance Information Insurance Information Medicare B Outpatient History/Precautions Current Condition/Medical Diagnosis Referring Provider Dr West Medical Diagnoses Z98.890 TF release of the RUE long finger M19.041 OA RUE MF Treatment Diagnosis R53.1 Weakness RUE M25.641 Stiffness of RUE hand Date of Onset DOS 01/22/24 Medical Conditions DM,HTN,Arthritis Other Conditions PMH (copied from ortho chart): Active Problems (Updated 03/12 @ 14:25 by Christa Guzmán) Osteoarthritis of right middle finger (Acute) M19.041 - Primary osteoarthritis, right hand ( ICD-10) Status post trigger finger release (Acute 01/22/24) right long finger flexor tendon sheath open release (A1 ousmane) (01/22/2024, Dr. West) Z98.890 - Other specified postprocedural states (ICD-10) Left peroneal tendinosis ( Acute) Peroneus brevis, chronic tendinosis including prominent splaying of the peroneus brevis tendon at and distal to level of the lateral malleolus without full- thickness rupture as well as without evidence of pathologic tenosynovitis at this time. 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 - Tibial collateral bursitis [Kelly-Stieda], left leg (ICD-10) Acute lateral meniscus tear of left knee (Acute) horizontal tear of the body through body/posterior horn junction of the lateral meniscus S83.282A - Other tear of lateral meniscus, current injury, left knee, initial encounter (ICD-10) Acute medial meniscal injury of left knee (Acute) horizontal flap tear of the body through posterior horn of the medial meniscus S83.8X2A - Sprain of other specified parts of left knee, initial encounter (ICD-10) MCL sprain of left knee (Acute ) femoral attachment, chronic S83.412A - Sprain of medial collateral ligament of left knee, initial encounter (ICD- 10) Osteoarthritis of left knee ( Acute) mild M17.12 - Unilateral primary osteoarthritis, left knee (ICD -10) Medical History (Updated 03/12 @ 14:25 by Christa Guzmán) Back problem M53.9 - Dorsopathy, unspecified (ICD-10) GERD (gastroesophageal reflux disease) K21.9 - Gastro-esophageal reflux disease without esophagitis (ICD-10) IBS (irritable bowel syndrome) K58.9 - Irritable bowel syndrome without diarrhea (ICD -10) Diabetes E11.9 - Type 2 diabetes mellitus without complications (ICD-10) Hypertension I10 - Essential (primary) hypertension (ICD-10) Sleep apnea G47.30 - Sleep apnea, unspecified (ICD-10) Seizure R56.9 - Unspecified convulsions (ICD-10) Left medial tibial stress syndrome S86.892A - Other injury of other muscle(s) and tendon(s) at lower leg level, left leg, initial encounter (ICD-10) Tear of medial meniscus of left knee S83.242A - Other tear of medial meniscus, current injury, left knee, initial encounter (ICD-10) Surgical History (Updated 04/25 @ 14:17 by Christa Guzmán) History of fusion of cervical spine Z98.1 - Arthrodesis status ( ICD-10) History of back surgery Z98.890 - Other specified postprocedural states (ICD-10) History of bilateral carpal tunnel release Z98.890 - Other specified postprocedural states (ICD-10) History of cholecystectomy Z90.49 - Acquired absence of other specified parts of digestive tract (ICD-10) Medications: artificial saliva (cmce-lytes) (Stewart-Stir mucosal spray with pump) 2 sprays PO Q2H PRN aspirin 650 mg PO Q4-6H PRN atorvastatin 80 mg PO QPM cholecalciferol (vitamin D3) ( Vitamin D3) 125 mcg PO QDAY cyanocobalamin (vitamin B-12) (Vitamin B-12) 250 mcg PO QDAY cyclobenzaprine 10 mg PO 3XD flash glucose scanning reader ([employer] Jody 2 [place]) As directed flash glucose sensor ( [employer]Style Jody 14 Day Sensor kit) As directed fluconazole 200 mg PO DAILY furosemide 20 mg PO QDAY glipizide ER 10 mg PO BID lamotrigine 150 mg PO BID metformin 1,000 mg PO BID pantoprazole 20 mg PO DAILY propranolol 20 mg PO DAILY PRN tamsulosin 0.4 mg PO QDAY Medical/Functional History Medical History Reviewed Yes Prior Level of Function/Mobility Pt states that prior to the onset of TF in his RUE MF, he had full, pain-free use of his RUE but states the TF was quite painful for some time. Social History Employment Status Disabled Hobbies Trap shooting Ortho Subjective Subjective Subjective Pt states that prior to his TF release surgery on 01/22/24 his middle finger on his right hand would just get caught and it was difficult to use his hand. States it was also quite painful. Pt states he has really been struggling since surgery, feels he actually has more pain than prior to surgery and his finger and hand are really swollen and stiff. Pt states he has difficulty pulling up his pants / bed covers, pushing a door open, gripping and holding things, using a computer mouse, zipping up his zippers, buttoning buttons, snapping snaps, retrieving things from his pocket and he cannot shoot his gun. Pt states his average pain in his hand is 7/10, described as sharp and sometimes stabbing pain. Always has some level of pain, very hard to sleep at night as it really hurts then. Pt has tried Tylenol and Aleve, neither seem to make a difference. Ice will give very short term relief. Goniometric Comments Goniometric Comments Goniometric Comments 03/15/24 AROM of BUE is WNL throughout with the exception of the RUE MF which is as follows: MP = 0-90 PIP = 0-65 DIP = 0-40 Hand Pinch/Windows Server Support Technician Strength Hand Pinch/Windows Server Support Technician Strength Hand Pinch/Windows Server Support Technician Strength Left Hand,Right Hand Left Hand Windows Server Support Technician Strength Position 1 in Elbow 78 Flexion (lbs) Lateral Pinch Strength (lbs) 16 Three Point Pinch (lbs) 15 Right Hand Windows Server Support Technician Strength Position 1 in Elbow 50 Flexion (lbs) Lateral Pinch Strength (lbs) 18 Three Point Pinch (lbs) 10 OT Objective Data Hand Hand Dominance Right Hand Function Pt has hx of DIPJ fusion of the RUE IF, so he has been used to using his RUE MF to help with picking up small items but this has been very difficult since surgery as his MF is too stiff. Skin/Wounds/Edema Comments 03/15/24 Incision is well healed, no s/s of infection. Palpable scar tissue under incisional scar, very ttp. RUE MF is quite swollen, circumferential measurements were taken and compared to the RUE: P1: RUE = 8cm, LUE = 7cm PIPJ: RUE = 7.8cm, LUE = 7.2cm P2: RUE = 6.5cm, LUE = 6.0cm Sensation Sensation Assessment Summary Comments 03/15/24 Pt feels his finger is somewhat numb, palm sometimes as well. OT Problems Problems Problems Decreased Strength,Decreased Range of Motion,Decreased Dexterity,Pain,Decreased Coordination,Sensory Sensitivity,Gripping,Pinching Other Problems Writing,Opening Containers, Dressing,Computer,Fasteners, Sleeping Patient Potential Good Assessment Assessment Assessment Pt is a very pleasant 63yo presenting 7 weeks and 4 days s/p RUE MF TF release with complaints of pain, swelling and limited AROM of the RUE which impairs his ability to get dressed, use his computer, shoot his gun, or any activity that requires pinching or gripping with his RUE. Pt will benefit from skilled OT intervention to address swelling, pain, weakness and stiffness of his RUE in order to restore full, pain-free use of his RUE. Occupational Therapy Treatment Plan - OP Potential Rehabilitation Potential Good Goals Goals 1. Pt will be independent and compliant with HEP in order to resume full, pain-free use of the involved UE. 3 weeks 2. Pt will demonstrate full, pain-free AROM of the involved UE in order to improve ability to grasp and hold. 6 weeks 3. Pt will demonstrate pain- free manager inventory and pinch strength comparable to the uninvolved side in order to improve functional grasp, hold, reach, and lifting ability needed to complete self-care, leisure tasks, and work activities. 8 weeks. Treatment Plan Treatment Plan Evaluation,Edema Control,Joint Mobilization,Manual Therapy, Splinting,Ultrasound,Wound Care/Scar Management, Therapeutic Exercise, Therapeutic Activities,Self Care/Home Management Expected Frequency 1-2x Week Expected Duration 6-8 Weeks Home Program Home Program Home Program Initiated Home Program Specifics 03/15/24 Provided training and practice in differential tendon glides, scar tissue mobilization, and contrast bath. Following demo, pt is able to complete exs with minimal cues. Pt was provided with written instructions for all of these. Pt was also provided a compression glove for use at night for edema reduction. Certification Certification Statement I Certify That: Therapy Services Provided Certification Information Clinic ID # [id number] Initial Certification Date 03/15/24 Recertification Due Date 06/13/24 Provider Signature Required Yes Provider Signature Shows Agreement With POC & Medical Necessity Physician NPI Number Write NPI# Here Physician Comment/Change Comment or Changes Physician Signature & Date Requested Please Sign/Date Here
== END 2024-08-15 23:59 | disposition home or self-care (01) ==
PROVIDERS: PCP Student in an Organized Health Care Education/Training Program; Visit Provider Orthopaedic Surgery Sports Medicine
DX: M19.041 Primary osteoarthritis, right hand (principal); Z98.890 Other specified postprocedural states; R53.1 Weakness; M25.641 Stiffness of right hand, not elsewhere classified; Z51.89 Encounter for other specified aftercare
CPT/HCPCS: 97035; 97110; 97140; 97165; L3913; X5282